=== PATIENT | female | born 1975 | race Caucasian/White ===

== ENCOUNTER 2020-01-16 12:18 | Outpatient (REF) | payer BC, SELFPAY ==
[2020-01-16 14:16] LABS: Blood Urea Nitrogen 10 mg/dL (9-16); Estimated Glomerular Filt Rate > 60
== END 2020-01-16 12:19 | disposition home or self-care (01) ==
LOC: HO.LAB 12:18
PROVIDERS: PCP Internal Medicine; Visit Provider Obstetrics & Gynecology
DX: Z01.812 Encounter for preprocedural laboratory examination (principal)
CPT/HCPCS: 82565; 84520

== ENCOUNTER 2020-01-20 07:52 | Outpatient (REF) | payer BC, SELFPAY ==
--- NOTE | 2020-01-20 07:55 | CT_ITS ---
EXAMINATION: CT ABDOMEN AND PELVIS WITHOUT AND WITH CONTRAST CLINICAL INFORMATION: Microscopic hematuria. COMPARISON: None TECHNIQUE: Multidetector volumetric imaging was performed of the abdomen and pelvis before and after the IV administration of 85 mL of Omnipaque 350 intravenous contrast. Sagittal and coronal reformatted images were obtained on the technologist's workstation. This CT examination was performed using dose optimization techniques as appropriate, variously including the following: *Automated exposure control *Adjustment of mA and/or kV according to patient size (this includes techniques or standardized protocols for targeted exams where dose is matched to indication/reason for exam; i.e. extremities or head) *Use of iterative reconstruction technique DLP: 705 mGy-cm FINDINGS: LUNG BASES: Minimal atelectatic changes are seen in the left lung base. LIVER, GALLBLADDER AND BILIARY TREE: The liver is normal in size, shape and attenuation. No focal hepatic lesion or biliary ductal dilatation is present. The gallbladder is unremarkable with no evidence of radiopaque gallstones, gallbladder wall thickening, or obvious pericholecystic inflammatory changes. PANCREAS: Unremarkable. SPLEEN: Unremarkable. ADRENAL GLANDS: Unremarkable. KIDNEYS AND URETERS: Precontrast, there are no radiopaque renal calculi seen. Postcontrast, there is symmetrical cortical nephrograms without any focal defect. There are punctate hypodensities in the lower pole and upper pole kidneys which may represent small cysts. Left kidney measures 10.3 cm in length and right kidney measures 11.14 cm in length. There is good opacity of bilateral kidneys, pelves and ureters without intraluminal filling defect or obstruction. BLADDER: Unremarkable. GASTROINTESTINAL TRACT: There is scattered stool and gas seen throughout the colon without any significant distention. The small bowel loops are normal caliber. No free air or free fluid seen. ABDOMINAL WALL: No significant hernia is appreciated. LYMPH NODES: Normal. VASCULAR: Unremarkable. PELVIC VISCERA: The uterus is anteverted and bulky with at least 2 heterogeneous lesions, likely fibroids seen. A third hypoechoic lesion in the cervix may represent a nabothian cyst or a lower uterine fibroid. There are bilateral ovarian cysts. The left ovarian cyst measures 3.1 cm and right ovarian cyst measures 2.4 cm. OSSEOUS STRUCTURES: No lytic process seen. CT/CT abdomen pelvis wo/w con IMPRESSION: No radiopaque urolith or hydroureteronephrosis. No enhancing renal mass seen. There are punctate hypodensities which may represent small cysts. Bulky enlarged uterus, likely fibroid disease. There is a nonenhancing hypodense area in the cervix may represent a nabothian cyst or a lower uterine fibroid. Recent ultrasound 12/12/2019 revealed at least 3 uterine fibroids.
[2020-01-20] MEDS: iohexoL 350 MG/ML 100 ML INFUS..BTL IV (09:29)
== END 2020-01-20 07:53 | disposition home or self-care (01) ==
LOC: HO.CT 07:52
PROVIDERS: PCP Internal Medicine; Visit Provider Obstetrics & Gynecology
DX: R31.29 Other microscopic hematuria (principal)
CPT/HCPCS: 74178

== ENCOUNTER 2020-04-01 09:02 | Outpatient (REF) | payer BC, SELFPAY ==
[2020-04-01 11:04] LABS: MANUAL DIFF FLAG NO
[2020-04-01 11:15] LABS: Basophils Percent Auto 0.3 % (0-2); Eosinophils Absolute Auto 0.1 X10*3/uL (0.0-0.4); Eosinophils Percent Auto 1.7 % (0-4); Hematocrit 38.7 % (37-47); Imm Gran Abs Auto 0.02 X10*3/uL (0.00-0.03); Imm Gran Pct Auto 0.3 % (0.0-0.4); Lymphocytes Absolute Auto 1.5 X10*3/uL (1.2-4.9); Lymphocytes Percent Auto 26.4 % (20-40); Mean Corpuscular HGB Conc 33.6 g/dl (31.0-35.0); Mean Corpuscular Hemoglobin 29.1 pg (27.0-33.0); Mean Corpuscular Volume 86.8 fL (80-98); Mean Platelet Volume 10.1 fL (9.4-12.3); Monocytes Absolute Auto 0.6 X10*3/uL (0.1-1.2); Monocytes Percent Auto 9.8 % (2-11); Neutrophils Absolute Auto 3.6 X10*3/uL (2.0-8.3); Neutrophils Percent Auto 61.5 % (45-73); Platelet Count 270 X10*3/uL (160-400); Red Blood Count 4.46 X10*6/uL (4.20-5.50); Red Cell Distribution Width 11.9 % (11.0-16.0); White Blood Count 5.8 X10*3/uL (4.8-10.8)
[2020-04-01 12:16] LABS: Thyroid Stimulating Hormone 2.13 uIU/mL (0.32-4.0)
[2020-04-02 09:13] LABS: BV Int Neg Control Negative (Negative); BV Int Pos Control Positive (Positive)
[2020-04-02 21:32] LABS: C. trachomatis RNA TMA NOT DETECTED (NOT DETECTED); N. gonorrhoeae RNA TMA NOT DETECTED (NOT DETECTED)
== END 2020-04-01 09:03 | disposition home or self-care (01) ==
LOC: HO.LAB 09:02
PROVIDERS: PCP Internal Medicine; Visit Provider Advanced Practice Midwife
DX: N93.9 Abnormal uterine and vaginal bleeding, unspecified (principal); R10.2 Pelvic and perineal pain; N92.1 Excessive and frequent menstruation with irregular cycle; Z86.018 Personal history of other benign neoplasm
CPT/HCPCS: 36415; 81003; 81025; 84443; 85025; 87480; 87491; 87510; 87591; 87660

== ENCOUNTER 2020-04-13 08:22 | Outpatient (REF) | payer BC, SELFPAY ==
--- NOTE | 2020-04-13 | MM_ITS ---
EXAMINATION: MM SCREENING DIGITAL BREAST TOMOSYNTHESIS, BILATERAL CLINICAL INFORMATION: Screening. Asymptomatic. Family history breast cancer, mother. The lifetime risk of breast cancer based on the Tyrer-Cuzick Model is 14%. COMPARISON: Mammography: 08/10/2018, 07/10/2017, 04/25/2016 TECHNIQUE: Digital breast tomosynthesis is performed in both the craniocaudal and mediolateral oblique views along with computer-aided detection (CAD). Synthesized 2D images are generated from the tomosynthesis. FINDINGS: The breasts are heterogeneously dense, which may obscure small masses (ACR BI-RADS breast composition Category c). Breast tissue composition borders on average fibroglandular. There is biopsy clip marker again seen posterior lower inner quadrant left breast. There is no interval mass or architectural abnormality or developing density. Left breast shows no abnormal calcifications. Right breast has a few loosely grouped punctate calcifications posterior upper outer breast, more conspicuous, possibly new or increased. Patient will be recalled for additional imaging. MM/MM tomosynthesis screening BI IMPRESSION: 1. Right: Loosely grouped calcifications posterior upper outer quadrant. 2. Left: No mammographic evidence of malignancy. ASSESSMENT: BI-RADS 0: Incomplete - Need Additional Imaging Evaluation RECOMMENDATION: 1. Additional views of the right breast (magnification CC, magnification ML). 2. Radiology department staff will contact the patient for additional imaging. This patient's information was entered into a reminder system with a target due date for their next mammogram.
== END 2020-04-13 08:23 | disposition home or self-care (01) ==
LOC: HO.MAMMO 08:22
PROVIDERS: PCP Internal Medicine; Visit Provider Internal Medicine
DX: Z12.31 Encounter for screening mammogram for malignant neoplasm of breast (principal)
CPT/HCPCS: 77063; 77067

== ENCOUNTER → 2020-04-14 14:33 | Outpatient (BNVA) | payer BC, SELFPAY | PROVIDERS: PCP Internal Medicine; Visit Provider Obstetrics & Gynecology ==

== ENCOUNTER 2020-04-27 08:24 | Outpatient (REF) | payer BC, SELFPAY | END 2020-04-27 08:25 | disposition home or self-care (01) | LOC: HO.LAB 08:24 | PROVIDERS: PCP Internal Medicine; Visit Provider Obstetrics & Gynecology | DX: N92.1 Excessive and frequent menstruation with irregular cycle (principal) | CPT/HCPCS: 58100; 81025; 88305 ==

== ENCOUNTER 2020-05-06 10:48 | Outpatient (REF) | payer BC, SELFPAY ==
--- NOTE | ~2020-05-06 | MM_ITS ---
EXAMINATION: MM DIAGNOSTIC DIGITAL MAMMOGRAPHY, RIGHT CLINICAL INFORMATION: Recall from screening for punctate calcifications upper outer right breast. COMPARISON: Mammography: 04/13/2020, 08/10/2018, 07/10/2017 TECHNIQUE: Digital mammography is performed in the following views: Magnification right CC, magnification right ML. FINDINGS: The breasts are heterogeneously dense, which may obscure small masses (ACR BI-RADS breast composition Category c). Additional magnification views show a few faint punctate loosely grouped calcifications in area of interest on ML view just superior to posterior nipple line 6 cm from nipple. There is no three-dimensional correlate on CC projection. Results are discussed with the patient at time of visit. Management plan is for short interval follow-up right mammography in 6 months to include magnification views. MM/MM added views RT IMPRESSION: There are a few loosely grouped calcifications on ML view without CC correlate. ASSESSMENT: BI-RADS 3: Probably Benign RECOMMENDATION: Diagnostic right mammography in 6 months. This patient's information was entered into a reminder system with a target due date for their next mammogram.
== END 2020-05-06 10:49 | disposition home or self-care (01) ==
LOC: HO.MAMMO 10:48
PROVIDERS: PCP Internal Medicine; Visit Provider Internal Medicine
DX: R92.1 Mammographic calcification found on diagnostic imaging of breast (principal)
CPT/HCPCS: 77065

== ENCOUNTER → 2020-05-13 12:01 | Outpatient (BNVA) | payer BC, SELFPAY | PROVIDERS: PCP Internal Medicine; Visit Provider Obstetrics & Gynecology ==

== ENCOUNTER 2020-05-27 08:28 | Outpatient (REF) | payer BC, SELFPAY ==
[2020-05-30 06:12] LABS: HPV mRNA E6/E7 rflx Not Detected (Not Detected)
== END 2020-05-27 08:29 | disposition home or self-care (01) ==
LOC: HO.LAB 08:28
PROVIDERS: Visit Provider Obstetrics & Gynecology
DX: Z01.419 Encounter for gynecological examination (general) (routine) without abnormal findings (principal); Z11.51 Encounter for screening for human papillomavirus (HPV); N92.1 Excessive and frequent menstruation with irregular cycle
CPT/HCPCS: 36415; 87624; 88142

== ENCOUNTER → 2020-06-03 10:27 | Outpatient (BNVA) | payer BC, SELFPAY | PROVIDERS: Visit Provider Obstetrics & Gynecology ==

== ENCOUNTER 2020-06-05 10:39 | Day surgery (SDC) | payer BC, SELFPAY ==
[2020-06-01 12:32] VITALS: BMI 26.9
--- NOTE | 2020-06-04 09:36 | HO.ANESPROP2 ---
Documented by User: Naheed Boone 06/04/20 09:37 HPI - Anesthesia Eval Consult details Narrative: 89yo F for D&C Diagnostic Hysteroscopy, Poss Novasure Ablation PMFSH Active Problems Active Problems: All Active Problems (Updated 06/01/20 @ 12:29 by Nannette Tracey) Pre-procedure lab exam (Acute) Abnormal uterine bleeding (AUB) (Acute) History of uterine fibroid (Acute) Pelvic pain in female (Acute) Bacterial vaginosis (Acute) Microscopic hematuria (Acute) Menometrorrhagia (Acute) Well woman exam (Acute) Past Medical History Medical History ASCUS with positive high risk HPV History of COVID-19 Hx of iron deficiency anemia Family History Family History Mother History of breast cancer Surgical History Surgical History H/O hand surgery H/O surgical removal of keloid History of endometrial ablation Hx of tubal ligation Social History Social History Alcohol intake: current Alcohol intake frequency: holidays/special occasions only Smoking Status: Never smoker Use of substances other than those prescribed or required for medical reasons: No Have you been hit, kicked, punched, or otherwise hurt by someone within the past year? If so, by whom?: No Advance Directives: No Advance Directives Information Provided: No Advance Directives on File: No Recently lost weight without trying: No Sexual orientation: Straight/Heterosexual Meds Allergies Allergy/AdvReac Type Severity Reaction Status Date / Time No Known Allergies Allergy Verified 06/05/20 11:25 [No Known Allergies*] Home Medications Medication Instructions Recorded Confirmed Last Taken Type albuterol sulfate 2 puff PO Q4H PRN 06/01/20 06/01/20 Unknown History Exam Exam Date and Time: June 04, 2020 0936 Height,Weight and Vital Signs: Height 5 ft 4 in Weight 71.214 kg Pertinent Lab Results Pertinent Lab Results: Laboratory Tests 04/01/20 10:30 WBC 5.8 Hgb 13.0 Hct 38.7 Plt Count 270 Assessment and Plan Assessment Anesthesia Assessment: Chart Reviewed Documented by User: Rodriguez Luu 06/05/20 12:08 PMFSH Past Medical History Medical History ASCUS with positive high risk HPV History of COVID-19 Hx of iron deficiency anemia Family History Family History Mother History of breast cancer Surgical History Surgical History H/O hand surgery H/O surgical removal of keloid History of endometrial ablation Hx of tubal ligation Social History Social History Alcohol intake: current Alcohol intake frequency: holidays/special occasions only Smoking Status: Never smoker Use of substances other than those prescribed or required for medical reasons: No Have you been hit, kicked, punched, or otherwise hurt by someone within the past year? If so, by whom?: No Advance Directives: No Advance Directives Information Provided: No Advance Directives on File: No Recently lost weight without trying: No Sexual orientation: Straight/Heterosexual Meds Allergies Allergy/AdvReac Type Severity Reaction Status Date / Time No Known Allergies Allergy Verified 06/05/20 11:25 [No Known Allergies*] Home Medications Medication Instructions Recorded Confirmed Last Taken Type albuterol sulfate 2 puff PO Q4H PRN 06/01/20 06/01/20 Unknown History Exam Airway Mallampati Class: II TM Dist: >3cm Neck ROM: Full
[2020-06-05 11:04] VITALS: BP 117/63; PULSE 69; RESP 18; TEMP 36.9; O2SAT 98
[2020-06-05 11:09] LABS: UPreg QC Valid YES; Urine Pregnancy NEGATIVE (NEGATIVE)
[2020-06-05] MEDS: Lactated Ringers 1,000 ML 100 ML IVCONT (11:22)
--- NOTE | 2020-06-05 12:14 | MHC.SHP ---
Pre-Procedural Eval Section A The patient is an INPATIENT: No Changes since office visit: No Cold of Flu in the past 2 weeks, No New Medical Problems, No Changes in Medication and No Patient answered all questions The History & Physical has been completed within 30 days and I have reviewed it.: Yes Section B Chief Complaint: Frequent Menstruation, Irregular Cycle Allergies: Allergies Allergy/AdvReac Type Severity Reaction Status Date / Time No Known Allergies Allergy Verified 06/05/20 11:25 [No Known Allergies*] Plan Diagnosis/Plan: Unchanged I have reviewed the history and physical and performed a pertinent physical examination on my patient. No changes have occurred unless specified.
--- NOTE | 2020-06-05 13:45 | PM.OP ---
Brief Operative Note Date of Service: 02/07/20 Pre-op diagnosis: Menometrorrhagia history of previous endometrial ablation Post-op diagnosis: other (Intrauterine adhesions) Procedure: Diagnostic hysteroscopy, failed attempt for NovaSure Endometrial Ablation Surgeon: Huy Pollard MD Anesthesia: MAC Estimated blood loss (mL): 0 Pathology: none sent Condition: stable Disposition: PACU
--- NOTE | 2020-06-05 13:50 | P.OP_ITS ---
Operative Note Operative Note Date of Service: 02/07/20 Narrative: Preop diagnosis: Menmetrorrhagia Post Op Diagnosis: Same, intrauterine adhesions Op: Diagnostic hysteroscopy, failed attempt of Novasure Endometrial Ablation Anesthesia: MAC Lead Sharepoint Developer: None QBL: Minimal Pathology: None Complications: None Procedure: The patient was put in the dorsal lithotomy position. She was prepped and draped in the usual sterile manner. Bimanual exam prior to prepping revealed a mobile, anteverted uterus. A speculum was placed in the vagina and the anterior lip of the cervix was grasped with a single toothed tenaculum and brought forward. Taking care not to enter deep into the uterus, a sound was passed inside to measure the length of the uterus and cervix. This length was found to be 8 cm. Next, Hegar dilator was inserted into the cervical os to measure the cervical length which was 3 cm. This yielded an endometrial cavity length of 6.5 cm. A series of Hegar dilators were then inserted sequentially into the cervical os up to a size of 5 mm. The diagnostic hysteroscope was introduced inside inside the patient uterine cavity and revealed lateral adhesions on both side. The Novasure device was then opened and tested; the fan deployed easily. The instrument was set to the correct cavity length and introduced into the uterine cavity. The fan was slowly deployed with gentle movements to ensure a snug fit within the cavity. The cavity width read 3.0 cm. The measurements were imported and a cavity check was done. The trumpet was then slid down to the cervix and the device the perforation test did not pass, this was followed by multiple attempts to no avail . The fan was retracted and device removed. The fan was examined and revealed charred tissue. The tenaculum was removed and the cervix examined for hemostasis which was achieved using pressure. Finally the speculum was removed. The patient tolerated the procedure well and was brought to the recovery room in a stable condition. At the end of the procedure all sponges and instruments were counted and correct. The blood loss was minimal and there were no complications.
[2020-06-05 13:55] VITALS: BP 150/78; PULSE 61; RESP 18; TEMP 36.2; O2SAT 100
[2020-06-05 14:00] VITALS: BP 137/81; PULSE 59; RESP 16; O2SAT 100
[2020-06-05 14:05] VITALS: BP 139/85; PULSE 92; RESP 17; O2SAT 99
[2020-06-05] MEDS: oxyCODONE HCl Immed Release 5 MG TABLET PO (14:05)
[2020-06-05 14:10] VITALS: BP 143/85; PULSE 60; RESP 16; O2SAT 98
[2020-06-05 14:25] VITALS: BP 148/87; PULSE 62; RESP 17; TEMP 36.2; O2SAT 98
== END 2020-06-05 14:54 | disposition home or self-care (01) ==
LOC: HO.SSS 10:39
PROVIDERS: PCP Internal Medicine; Visit Provider Obstetrics & Gynecology
PROC: 0UDB8ZX Extraction of Endometrium, Via Natural or Artificial Opening Endoscopic, Diagnostic (ICD-10-PCS; CPT 58558; principal; 2020-06-05 14:00)
DX: N92.1 Excessive and frequent menstruation with irregular cycle (principal); N73.6 Female pelvic peritoneal adhesions (postinfective); N85.4 Malposition of uterus; Z98.51 Tubal ligation status; Z87.42 Personal history of other diseases of the female genital tract; Z86.16 Personal history of COVID-19
CPT/HCPCS: 58563; 81025; J1100; J2250; J2405; J3010

== ENCOUNTER 2020-06-10 11:02 | Outpatient (REF) | payer BC, SELFPAY ==
[2020-06-10 17:54] LABS: CT PCR NOT DETECTED (Not Detect.); NG PCR NOT DETECTED (Not Detect.)
[2020-06-11 09:53] LABS: BV Int Neg Control Negative (Negative); BV Int Pos Control Positive (Positive)
== END 2020-06-10 11:03 | disposition home or self-care (01) ==
LOC: HO.LAB 11:02
PROVIDERS: PCP Internal Medicine; Visit Provider Obstetrics & Gynecology
DX: Z48.89 Encounter for other specified surgical aftercare (principal); N92.1 Excessive and frequent menstruation with irregular cycle; N71.9 Inflammatory disease of uterus, unspecified
CPT/HCPCS: 87480; 87491; 87510; 87591; 87660

== ENCOUNTER → 2020-06-12 09:34 | Outpatient (BNVA) | payer BC, SELFPAY | PROVIDERS: PCP Internal Medicine; Visit Provider Obstetrics & Gynecology ==

== ENCOUNTER 2020-06-12 10:25 | Outpatient (REF) | payer BC, SELFPAY ==
--- NOTE | ~2020-06-12 | US_ITS ---
EXAMINATION: PELVIC ULTRASOUND CLINICAL INFORMATION: Inflammatory disease of the uterus COMPARISON: Previous pelvic ultrasound November [address] of the abdomen and pelvis December 2019 TECHNIQUE: Transabdominal and transvaginal pelvic ultrasound was performed. Transvaginal exam was performed for better visualization of the uterus and ovaries. FINDINGS: The uterus is anteverted and slightly enlarged measuring 12.8 x 5.7 x 9.8 cm in dimension. There are multiple uterine fibroids. There is a left anterior fundal/cornual fibroid that measures 4.4 x 3.7 x 4.4 cm and appears increased from 3 x 3 x 2.7 cm on previous exam. There is a anterior upper uterine body or or fundal fibroid that measures 4.3 x 2.7 x 3.2 cm that is may be slightly increased from 3.5 x 2.9 x 3.3 cm on previous exam. There is a right posterior uterine body fibroid measuring 1.4 x 0.8 x 1.2 cm that appears unchanged. There is a left anterior uterine body fibroid that measures 1.8 x 1.4 x 1.8 cm that appears unchanged. Endometrial thickness is normal measuring 0.8 cm. There are nabothian cysts in the cervix. The right ovary measures 3.9 x 2.1 x 2.2 cm and contains a 2.1 x 1.8 x 1.8 cm simple cyst. Left ovary is seen transabdominally only. The left ovary is enlarged measuring 5.6 x 1.9 x 3.6 cm and contains a 3.7 x 2 x 3.6 cm simple cyst. US/US pelvic complete IMPRESSION: Enlarged fibroid uterus. There may be interval increase in the largest uterine fibroids. Normal thickness endometrium measuring 0.8 cm. Bilateral ovarian cysts, largest measuring 3.7 x 2 x 3.6 cm on the left.
== END 2020-06-12 10:26 | disposition home or self-care (01) ==
LOC: HO.US 10:25
PROVIDERS: PCP Internal Medicine; Visit Provider Obstetrics & Gynecology
DX: N71.9 Inflammatory disease of uterus, unspecified (principal)
CPT/HCPCS: 76830; 76856

== ENCOUNTER → 2020-06-15 11:47 | Outpatient (BNVA) | payer BC, SELFPAY | PROVIDERS: PCP Internal Medicine; Visit Provider Obstetrics & Gynecology ==

== ENCOUNTER → 2020-07-23 11:11 | Outpatient (BNVA) | payer BC, SELFPAY | PROVIDERS: PCP Internal Medicine; Visit Provider Obstetrics & Gynecology ==

== ENCOUNTER 2020-07-31 11:35 | Emergency (ER) | payer BC, SELFPAY ==
[2020-07-31 11:41] VITALS: BP 149/88; PULSE 80; RESP 18; TEMP 36.4; O2SAT 98; BMI 26.7
--- NOTE | 2020-07-31 11:58 | ED.EYEPROB ---
HPI - Eye Problem General Chief complaint: Eye Problems Stated complaint: EYE ISSUE Time Seen by Provider: 07/31/20 11:58 History of Present Illness HPI Narrative: Patient complains of right upper lid redness and swelling with no vision change no discharge from the eye no eye pain This is been going on for 2-3 days and she saw urgent care who started erythromycin ointment but the redness is getting worse Related Data Home Medications Medication Instructions Recorded Confirmed albuterol sulfate 2 puff PO Q4H PRN 06/01/20 07/23/20 Previous Rx's Medication Instructions Recorded tranexamic acid 650 mg tablet 1,300 mg PO TID 5 Days #30 tab 06/15/20 erythromycin 5 mg/gram (0.5 %) eye 1 appl OPHTHALMIC (EYE) QID 7 Days 07/29/20 ointment #3.5 g cephalexin 500 mg PO QID 7 Days #28 tab 07/31/20 Allergies Allergy/AdvReac Type Severity Reaction Status Date / Time No Known Allergies Allergy Verified 07/29/20 14:24 [No Known Allergies*] Review of Systems Review of Systems: Positive for right upper eyelid swelling, some redness in the eye, Negatives are no fever no chills no dizziness no headache no vision loss no eye pain no discharge from the eye no runny nose no sore throat no cough no rash Yes all other systems are reviewed and are negative PMFSH Past Medical History Source: nursing notes reviewed Medical History ASCUS with positive high risk HPV History of COVID-19 Hx of iron deficiency anemia Surgical History H/O hand surgery H/O surgical removal of keloid History of endometrial ablation Hx of tubal ligation Family History Family History Mother History of breast cancer Social History Social History Alcohol intake: current Alcohol intake frequency: holidays/special occasions only Smoking Status: Never smoker Advance Directives: No Advance Directives Information Provided: Yes Patient : No Sexual orientation: Straight/Heterosexual Physical Exam Vital Signs: Vital Signs: Last Vital Signs Temp 97.6 F 07/31/20 11:41 Pulse 80 05/07/21 11:41 Resp 18 07/31/20 11:41 BP 149/88 H 07/31/20 11:41 Pulse Ox 98 07/31/20 11:41 Body Mass Index 26.7 General appearance is no acute distress The eye exam bilateral pupils equal round reactive to light, extraocular motions intact, no photophobia, vision is 5 bilateral The right has some conjunctival redness, the right upper lid is red and tender to the touch, when the lid is flicked back there is no foreign body under the upper lid, with staining there is no corneal abrasion or ulceration, there is mild swelling infraorbital with no erythema, no vesicular lesions no rash surrounding eye or the face The neck is supple Respiratory no distress Extremities full range of motion x4 Skin no rashes Course Course Course Narrative: Staining of the eye was negative, there is no pain in the eye itself, there was conjunctival redness and she is already on erythromycin ointment As there is now redness of the skin of the eyelid and some swelling below the eye on concerned about a developing cellulitis so she is started on antibiotics Discharge Plan Discharge Clinical Impression: Cellulitis, Blepharitis Patient Disposition: Home, Self-Care Additional Instructions: We added an antibiotic for possible skin infection around the eyelid and in the skin around the eye Follow with eye doctor or primary doctor on Monday or Monday if not better Return to the ER any time for spreading redness, fever, increased pain, worse swelling, any vision loss, discharge from the eye, any worse condition or any concerns Prescriptions: New cephalexin 500 mg tablet 500 mg PO QID 7 Days Qty: 28 RF: 0 No Action albuterol sulfate 90 mcg/actuation HFA aerosol inhaler 2 puff PO Q4H PRN (Reason: Wheezing) RF: 0 erythromycin 5 mg/gram (0.5 %) ointment 1 appl ophthalmic (eye) QID 7 Days Qty: 3.5 RF: 0 tranexamic acid [Lysteda] 650 mg tablet 1,300 mg PO TID 5 Days Qty: 30 RF: 2 Referrals: Negro Meza [Physician] - 2 days (Right-sided blepharitis) Stand Alone Forms: Work/School Release Interventions: ED Discharge Assessment Last Done: 07/31/20 12:46 Discharge Date/Time: 07/31/20 12:47
== END 2020-07-31 12:47 | disposition home or self-care (01) ==
PROVIDERS: Emergency Provider Emergency Medicine; PCP Internal Medicine
DX: H01.001 Unspecified blepharitis right upper eyelid (principal); H00.031 Abscess of right upper eyelid; H57.11 Ocular pain, right eye; Z79.899 Other long term (current) drug therapy
CPT/HCPCS: 99283

== ENCOUNTER 2020-09-29 12:56 | Outpatient (REF) | payer BC, SELFPAY ==
--- NOTE | ~2020-09-29 | US_ITS ---
EXAMINATION: US PELVIS COMPLETE CLINICAL INFORMATION: Abnormal uterine bleeding. COMPARISON: Pelvic ultrasound May 2020. CT December 2019. TECHNIQUE: Transabdominal and transvaginal pelvic ultrasound were performed FINDINGS: Uterus: 14.2 x 6.3 x 8.5 cm. Endometrial thickness cannot be assessed as it was obscured related to the fibroids. Total uterine volume 397 mL (previously 373 mL). 4 fibroids noted: 2 appear slightly increased in size compared to prior ultrasound. Fibroid #1: Measures 4.4 x 3.3 x 4.2 cm, unchanged. Anterior body fundus junction. Fibroid #2: Measures 3 x 2.3 x 2.2 cm previously 1.4 x 0.79 x 1.2 cm. Anterior body. Fibroid #3: Measures 3.2 x 2.4 x 3.7 cm, unchanged. Lower anterior. Fibroid #4 Measures 2.6 x 1.7 x 2.8 cm slightly increased compared to prior measuring 1.8 x 1.4 x 1.8 cm. Posterior body. Right ovary 3.6 x 1.8 x 2.3 cm. 1.8 cm cyst noted. Previously 2.1 cm. Left ovary: 3.2 x 1.9 x 2.7 cm with a volume of 8.6 mL. 1.6 cm cyst noted. Previously 3.7 cm. Cul-de-sac fluid: None Nabothian cysts again noted. US/US pelvic and transvaginal IMPRESSION: Fibroid uterus. 2 fibroids appears slightly increased compared to recent ultrasound May 2020. It is possible this change in size is artifactual related to sifting operator variability.
== END 2020-09-29 12:57 | disposition home or self-care (01) ==
LOC: HO.US 12:56
PROVIDERS: Visit Provider Obstetrics & Gynecology
DX: N93.9 Abnormal uterine and vaginal bleeding, unspecified (principal); N92.1 Excessive and frequent menstruation with irregular cycle; N88.8 Other specified noninflammatory disorders of cervix uteri
CPT/HCPCS: 76830; 76856

== ENCOUNTER → 2020-10-07 09:00 | Outpatient (BNVA) | payer BC, SELFPAY | PROVIDERS: Visit Provider Obstetrics & Gynecology ==

== ENCOUNTER 2020-10-20 12:03 | Inpatient (IN) | payer BC, SELFPAY ==
[2020-10-13 11:46] VITALS: BMI 27.1
--- NOTE | 2020-10-13 13:15 | HO.ANESPROP2 ---
Documented by User: Naheed Mely 10/13/20 13:17 HPI - Anesthesia Eval Consult details Narrative: 45yo F for Hysterectomy Abdominal, Bilitaral Salpingectomy, Bilateral Oophorectomy s/p D&C hyst with [facility] 4 05/2020 [facility] Active Problems Active Problems: All Active Problems (Updated 10/02/20 @ 09:12 by Bettina mSith MD) Pre-procedure lab exam (Acute) Abnormal uterine bleeding (AUB) (Acute) History of uterine fibroid (Acute) Pelvic pain in female (Acute) Bacterial vaginosis (Acute) Microscopic hematuria (Acute) Menometrorrhagia (Acute) Well woman exam (Acute) Endometritis (Acute) Blepharitis of eyelid of right eye (Acute) Iron deficiency (Acute) Past Medical History Medical History ASCUS with positive high risk HPV History of COVID-19 Hx of iron deficiency anemia Family History Family History Mother History of breast cancer Surgical History Surgical History (Updated 10/13/20 @ 11:34 by Nannette Tracey) H/O hand surgery H/O surgical removal of keloid History of endometrial ablation History of hysteroscopy Hx of tubal ligation Social History Social History Are you a primary hearing healthcare practitioner to a significant other at home: No Do you presently have visiting nurse or other home services: No Alcohol intake: current Alcohol intake frequency: a few times a month Patient Tobacco Use Status: Never used Tobacco Sexual orientation: Straight/Heterosexual Meds Allergies Allergy/AdvReac Type Severity Reaction Status Date / Time No Known Allergies Allergy Verified 10/13/20 11:35 [No Known Allergies*] Home Medications Medication Instructions Recorded Confirmed Last Taken Type No Known Home Meds 10/13/20 10/13/20 Unknown History Exam Exam Date and Time: October 13, 2020 1315 Height,Weight and Vital Signs: Height 5 ft 4 in Weight 71.668 kg Pertinent Lab Results Pertinent Lab Results: Laboratory Tests 10/02/20 09:10 WBC 7.4 Hgb 12.4 Hct 38.0 Plt Count 229 Assessment and Plan Assessment Anesthesia Assessment: Chart Reviewed Documented by User: [email or web address] Anti 10/20/20 09:27 PMFSH Past Medical History Medical History ASCUS with positive high risk HPV History of COVID-19 Hx of iron deficiency anemia Family History Family History Mother History of breast cancer Surgical History Surgical History (Updated 10/13/20 @ 11:34 by Nannette Tracey) H/O hand surgery H/O surgical removal of keloid History of endometrial ablation History of hysteroscopy Hx of tubal ligation Social History Social History Are you a primary hearing healthcare practitioner to a significant other at home: No Do you presently have visiting nurse or other home services: No Alcohol intake: current Alcohol intake frequency: a few times a month Patient Tobacco Use Status: Never used Tobacco Sexual orientation: Straight/Heterosexual Meds Allergies Allergy/AdvReac Type Severity Reaction Status Date / Time No Known Allergies Allergy Verified 10/13/20 11:35 [No Known Allergies*] Home Medications Medication Instructions Recorded Confirmed Last Taken Type No Known Home Meds 10/13/20 10/13/20 Unknown History Exam Airway Mallampati Class: II TM Dist: >3cm Neck ROM: Full Loose/Missing/Broken Teeth: No Heart: RRR Lungs: CTA Assessment and Plan Assessment Anesthesia Assessment: Anesthesia Plan Discussed and Chart Reviewed Final Anesthetic Review NPO: Yes ASA Class: II Final Preanesthetic Review: Meds/Allgs Chart Reviewed, Consent Obtained/Reviewed and Anes Risks/Benef Reviewed Patient Risk: Low Procedure Risk: Intermediate Anesthetic Plan Anesthetic Plan: GA Disposition: Standard PACU
[2020-10-20] VITALS (21 sets, daily range): BP systolic 127–167; BP diastolic 57–92; PULSE 63–96; RESP 16–22; TEMP 36.1–37.1; O2SAT 95–100
[2020-10-20 09:18] LABS: Hematocrit 38.1 % (37-47); Hemoglobin 12.6 g/dl (12.0-16.0); Mean Corpuscular HGB Conc 33.1 g/dl (31.0-35.0); Mean Corpuscular Hemoglobin 28.7 pg (27.0-33.0); Mean Corpuscular Volume 86.8 fL (80-98); Mean Platelet Volume 9.9 fL (9.4-12.3); Platelet Count 239 X10*3/uL (160-400); Red Blood Count 4.39 X10*6/uL (4.20-5.50); Red Cell Distribution Width 12.1 % (11.0-16.0)
[2020-10-20 09:31] LABS: UPreg QC Valid YES; Urine Pregnancy NEGATIVE (NEGATIVE)
[2020-10-20] MEDS: Lactated Ringers 1,000 ML 100 ML IVCONT (09:32)
[2020-10-20 09:44] LABS: COVID-19 Test Negative (Negative); IDNOW Serial# 9DD0AD1C
--- NOTE | 2020-10-20 09:53 | MHC.SHP ---
Pre-Procedural Eval Section A Date of Service: 10/20/20 The patient is an INPATIENT: No Changes since office visit: No Cold of Flu in the past 2 weeks, No New Medical Problems, No Changes in Medication and No Patient answered all questions The History & Physical has been completed within 30 days and I have reviewed it.: Yes Section B Chief Complaint: Frequent Menstruation Allergies: Allergies Allergy/AdvReac Type Severity Reaction Status Date / Time No Known Allergies Allergy Verified 10/13/20 11:35 [No Known Allergies*] Plan Diagnosis/Plan: Unchanged I have reviewed the history and physical and performed a pertinent physical examination on my patient. No changes have occurred unless specified.
--- NOTE | 2020-10-20 12:09 | PM.OP ---
Brief Operative Note Date of Service: 10/20/20 Pre-op diagnosis: Menometrorrhagia and myomatous uterus Post-op diagnosis: same Procedure: Total abdominal hysterectomy and bilateral salpingo oophorectomy Surgeon: Huy Pollard MD Anesthesia: MIGUELA Was an Diesel Machinist used for this Procedure?: No Diesel Machinist: Filipe Conde Estimated blood loss (mL): 180 IV fluids (mL): 1,200 Urine output (mL): 200 Pathology: other (Uterus, cervix Right & left fallopian tubes, right and left ovaries) Condition: stable Disposition: PACU
--- NOTE | 2020-10-20 12:12 | W.PM.OPN ---
Operative Note Operative Note Date of Service: 10/20/20 Narrative: PREOPERATIVE DIAGNOSES: 1. Severe menometrorrhagia unresponsive to medical therapy. 2. Symptomatic fibroid uterus. POSTOPERATIVE DIAGNOSES: 1. Severe menometrorrhagia unresponsive to medical therapy. 2. Symptomatic fibroid uterus. PROCEDURE: Total abdominal hysterectomy& Bilateral salpingecto oophorectomy ANESTHESIA: General. Director Electronics: Mireya Conde MD ESTIMATED BLOOD LOSS: 180 mL. COMPLICATIONS: None. FINDING: Fibroid uterus. PROCEDURE IN DETAIL: The patient was prepped and draped in the usual sterile fashion for an abdominal procedure. A scalpel was used to make a midline skin incision, which was carried down sharply through the subcutaneous tissue to the fascia. The fascia was nicked in the midline and incision was carried at the upper and lower edge of the incision with curved Beasley scissors. The rectus abdominis muscles were in the midline. The peritoneum was then bluntly entered and this incision was carried down inferiorly and superiorly with care taken to avoid bladder and bowel. The O'Neville-O'Villegas instrument was then placed without difficulty. The uterus was grasped with 2 Heany clamps on both cornual ends of the uterus and the entire pelvis was then visualized without difficulty. The Right round ligament was grasped with a Heany clamp, suture ligated and transacted using #0 Vycril suture ligature, and the anterior peritoneum dissected down to the bladder flap which was then developed free from the uterus without difficulty.The same was performed on the left side. The infundibulopelvic ligaments on both sides were ligated, transacted and sutured using #0 Vycril suture ligature after opening a fenestration in the braod ligament on each side. Careful dissection of the uterus from the pedicle with the uterine arteries and cardinal ligaments was then ligated, transectioned and suture ligated using #0 Vycril suture ligature in an interrupted fashion on the left and right side. This was done without difficulty. The cervix was then developed with careful dissection. Emerson scissors were then used to remove the cervix from the vaginal cuff. This specimen was sent to pathology. Hemostasis was noted at this point of the procedure. A #0 Vicryl suture ligature was then used in a figure of eight fashion at the angles. Hemostasis was again noted. [id number]-cd-rqpzm sutures were then used in an interrupted fashion to close the cuff. Hemostasis was again noted. The entire pelvis was washed. Hemostasis was noted. The fascia was closed using #0 PDS suture in a running fashion. The skin was closed with staple gun. Sponge and needle counts were noted to be correct x2 at the end of the procedure. Instrument count was noted to be correct x2 at the end of the procedure. Hemostasis was noted at each level of closure. The patient tolerated the procedure well and went to recovery room in good condition. Cafazolin 2 g IV given preop prior to incision. The patient tolerated the procedure well and was transferred to the PACU in a stable condition. Woodard was draining clera urine.
[2020-10-20] MEDS: fentaNYL citrate/PF 100 MCG/2 ML VIAL 50 MCG IVPUSH ×4 (12:23→12:45)
[2020-10-20] MEDS: Ketorolac Tromethamine 30 MG/ML VIAL IV ×2 (12:23→18:37)
[2020-10-20] MEDS: oxyCODONE HCl Immed Release 5 MG TABLET 10 MG PO ×2 (12:24→22:04)
[2020-10-20] MEDS: fentaNYL citrate/PF 100 MCG/2 ML VIAL 25 MCG IVPUSH ×4 (13:45→15:00)
[2020-10-20] MEDS: Lactated Ringers 1,000 ML 125 ML IVCONT ×2 (15:56→20:18)
[2020-10-20] MEDS: oxyCODONE HCl Immed Release 5 MG TABLET PO ×2 (16:00→16:25)
[2020-10-20 16:37] LABS: Baso%MD 0.1 %; Hematocrit 34.6 % (37-47); Hemoglobin 11.7 g/dl (12.0-16.0); IG%MD 0.4 %; Lymph%MD 2.9 %; Mean Corpuscular HGB Conc 33.8 g/dl (31.0-35.0); Mean Corpuscular Hemoglobin 28.9 pg (27.0-33.0); Mean Corpuscular Volume 85.4 fL (80-98); Mono%MD 3.3 %; Neut%MD 93.3 %; Platelet Count 234 X10*3/uL (160-400); Red Blood Count 4.05 X10*6/uL (4.20-5.50); Red Cell Distribution Width 12.1 % (11.0-16.0); White Blood Count 18.4 X10*3/uL (4.8-10.8)
[2020-10-20 17:11] LABS: Band Neutrophils Percent 5 % (3-5); Lymphocytes Absolute Manual 0.2 X10*3/uL (0.6-4.8); Lymphocytes Percent Manual 1 % (20-40); Metamyelocytes Absolute 0.2 X10*3/uL; Metamyelocytes Percent 1 %; Monocytes Absolute Manual 0.7 X10*3/uL (0.0-1.2); Monocytes Percent Manual 4 % (2-11); Neutrophils Absolute Manual 17.3 X10*3/uL (2.2-7.9); Neutrophils Percent Manual 89 % (45-73)
[2020-10-20 17:12] LABS: Platelet Estimate NORMAL (NORMAL); Platelet Morphology Comment NORMAL; RBC Morphology NORMAL
[2020-10-20] MEDS: oxyCODONE HCl ER 10 MG TAB.ER.12H PO (20:18)
[2020-10-21] VITALS: BP 123/65; PULSE 83; RESP 16; TEMP 36; O2SAT 97
[2020-10-21] MEDS: Lactated Ringers 1,000 ML 100 ML IVCONT (06:14)
[2020-10-21 06:24] LABS: MANUAL DIFF FLAG NO
[2020-10-21 06:33] LABS: Basophils Percent Auto 0.1 % (0-2); Hematocrit 32.2 % (37-47); Hemoglobin 10.6 g/dl (12.0-16.0); Imm Gran Abs Auto 0.04 X10*3/uL (0.00-0.03); Imm Gran Pct Auto 0.3 % (0.0-0.4); Lymphocytes Absolute Auto 1.5 X10*3/uL (1.2-4.9); Lymphocytes Percent Auto 10.7 % (20-40); Mean Corpuscular HGB Conc 32.9 g/dl (31.0-35.0); Mean Corpuscular Hemoglobin 28.3 pg (27.0-33.0); Mean Corpuscular Volume 85.9 fL (80-98); Mean Platelet Volume 10.5 fL (9.4-12.3); Monocytes Absolute Auto 1.4 X10*3/uL (0.1-1.2); Monocytes Percent Auto 10.1 % (2-11); Neutrophils Absolute Auto 10.9 X10*3/uL (2.0-8.3); Neutrophils Percent Auto 78.8 % (45-73); Platelet Count 229 X10*3/uL (160-400); Red Blood Count 3.75 X10*6/uL (4.20-5.50); Red Cell Distribution Width 12.1 % (11.0-16.0); White Blood Count 13.8 X10*3/uL (4.8-10.8)
[2020-10-21 07:14] VITALS: BP 145/74; PULSE 75; RESP 17; TEMP 36; O2SAT 98
[2020-10-21] MEDS: oxyCODONE HCl ER 10 MG TAB.ER.12H PO ×2 (08:10→20:48)
--- NOTE | 2020-10-21 08:11 | PM.GYNPNOP ---
INSURANCE SALES REPRESENTATIVE - Subjective Subjective Date of Service: 10/21/20 Interval history: Doing well. No complaints. On bed rest. Woodard in, NPO. 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 Physical Exam Vitals Vital signs: Temp Pulse Resp BP Pulse Ox 96.8 F 75 17 145/74 H 98 10/21/20 07:14 10/21/20 07:14 10/21/20 07:14 10/21/20 07:14 10/21/20 07:14 Body Mass Index 27.1 Incision Incision: Incision C/D/I Lungs Respiratory Effort: No intercostal retractions and No accessory muscle usage Auscultation: Clear to auscultation Cardiovascular Auscultation: RRR Abdomen Auscultation/Inspection/Palpation: Soft, Non-distended and Bowel sounds diminished or absent INSURANCE SALES REPRESENTATIVE - Prog Note: Results Labs CBC & Chem 7: 10/21/20 05:06 Labs: Laboratory Results - last 24 hr 10/20/20 10/20/20 10/20/20 09:00 09:00 09:08 WBC 7.0 RBC 4.39 Hgb 12.6 Hct 38.1 MCV 86.8 MCH 28.7 MCHC 33.1 RDW 12.1 Plt Count 239 MPV 9.9 Immature Gran % (Auto) Neut % (Auto) Lymph % (Auto) Clayton % (Auto) Eos % (Auto) Baso % (Auto) Lymph # (Auto) Clayton # (Auto) Eos # (Auto) Baso # (Auto) Abs Immat Gran (auto) Absolute Neuts (auto) Absolute Nucleated RBC 0.000 Nucleated RBC % (auto) 0.0 Neutrophils % (Manual) Band Neutrophils % Lymphocytes % (Manual) Monocytes % (Manual) Metamyelocytes % Abs Neuts (Manual) Lymphocytes # (Manual) Monocytes # (Manual) Metamyelocytes # Platelet Estimate Plt Morphology Comment RBC Morphology Urine Test NEGATIVE COVID-19 ([facility]) Negative COVID-19 Clin Com See Note Blood Type Antibody Screen 10/20/20 10/20/20 10/21/20 09:08 16:19 05:06 WBC 18.4 H 13.8 H RBC 4.05 L 3.75 L Hgb 11.7 L 10.6 L Hct 34.6 L 32.2 L MCV 85.4 85.9 MCH 28.9 28.3 MCHC 33.8 32.9 RDW 12.1 12.1 Plt Count 234 229 MPV 10.0 10.5 Immature Gran % (Auto) 0.3 Neut % (Auto) 78.8 H Lymph % (Auto) 10.7 L Clayton % (Auto) 10.1 Eos % (Auto) 0.0 Baso % (Auto) 0.1 Lymph # (Auto) 1.5 Clayton # (Auto) 1.4 H Eos # (Auto) 0.0 Baso # (Auto) 0.0 Abs Immat Gran (auto) 0.04 H Absolute Neuts (auto) 10.9 H Absolute Nucleated RBC 0.000 0.000 Nucleated RBC % (auto) 0.0 0.0 Neutrophils % (Manual) 89 H Band Neutrophils % 5 Lymphocytes % (Manual) 1 L Monocytes % (Manual) 4 Metamyelocytes % 1 Abs Neuts (Manual) 17.3 H Lymphocytes # (Manual) 0.2 L Monocytes # (Manual) 0.7 Metamyelocytes # 0.2 Platelet Estimate NORMAL Plt Morphology Comment NORMAL RBC Morphology NORMAL Urine Test COVID-19 ([facility]) COVID-19 Clin Com Blood Type A Positive Antibody Screen NEGATIVE INSURANCE SALES REPRESENTATIVE - A/P Assessment/Plan Postoperative day: 1 Procedure/Diagnosis: Procedures Operation Date: 10/20/20 10:30 Actual Procedure Side Surgeon p Hysterectomy Abdominal, Bilitaral Salpingectomy, Bilateral Oophorectomy Bilateral Huy Pollard MD Ambulate with assistance DC Woodard catheter, if the patient does void and 6 hours scan the bladder, clear liquid diet, if tolerated Hep-Lock IV, DC Toradol and switch to Motrin 600 mg Q 6-8 p.r.n. pain. Oxycodone 5 mg p.o. Q 4 p.r.n. moderate pain and 10 mg p.o. Q 4 hours p.r.n. severe pain. If positive flatus will advanced diet to regular. Status: Doing well Time Spent With Patient Time: Total time spent is greater than 50% in coordination of care (as documented) at patient's floor/unit and/or counseling patient: Time with patient: 15 - 24 minutes
[2020-10-21] MEDS: oxyCODONE HCl Immed Release 5 MG TABLET 10 MG PO ×4 (08:16→23:26)
--- NOTE | 2020-10-21 08:38 | HO.POSTANES ---
Post Anesthesia Evaluation Post Anesthesia Evaluation Vital Signs: Vital Signs Temp Pulse Resp BP Pulse Ox 10/21/20 07:14 96.8 F 75 17 145/74 H 98 10/21/20 00:00 96.8 F 83 16 123/65 97 Anesthesia: General Endotracheal-GETA Mental Status: Awake Pain Control: Satisfactory Nausea/Vomiting: None Hydration: Adequate Anesthesia-Related Issues: No Anes. Related Issues
[2020-10-21] MEDS: Ibuprofen 600 MG TABLET PO (10:19)
--- NOTE | 2020-10-21 13:16 | MHC.CM.PN ---
DISCHARGE PLAN-- PER [facility]ER [facility] HOME WITH NO SERVICES TRANSPORTATION LABORER LIVESTOCK FOLLOW UP PER DISCHARGE INSTRUCTIONS PCP PATIENT TO CALL FOR APPOINTMENT DR POE FOR POST [facility] DISCHARGE FOLLOW UP TRANSPORTATION NURSE SEGMENT BLOCK LAYER NOTE ELECTRONIC MEDICAL RECORD REVIEWED ALONG WITH CASE DISCUSSED WITH STAFF NURSE AND LABORER LIVESTOCK PHYISICIAN BY TEXT, MET WITH PATIENT AND HER , PATIENT IS EMPLOYED , ACTIVE , INDEPENDENT IN ALL ALDS AND MOBILITY WITH OUT THE USE OF ANY DEVICES SHE HAS NO VNA /NO DME SERVICES TRANSPORT FAMILY
[2020-10-21 15:35] VITALS: BP 111/58; PULSE 60; RESP 16; TEMP 36; O2SAT 97
[2020-10-21 23:20] VITALS: BP 134/63; PULSE 75; RESP 16; TEMP 36; O2SAT 99
[2020-10-22 07:46] VITALS: BP 121/75; PULSE 81; RESP 16; TEMP 36.3; O2SAT 97
--- NOTE | 2020-10-22 08:08 | P.PNOB_ITS ---
CORPORATE ACCOUNTING MANAGER - Subjective Subjective Date of Service: 10/22/20 Interval history: Doing well. No complaints. Tolerating regular diet. + Flatus, good pain control, voiding freely Subjective Findings: Ambulating well: Reports, Flatus passed: Reports, Nausea: Denies and Pain controlled: Reports MASTER SHIP Physical Exam Vitals Vital signs: Temp Pulse Resp BP Pulse Ox 97.4 F 81 16 121/75 97 10/22/20 07:46 10/22/20 07:46 10/22/20 07:46 10/22/20 07:46 10/22/20 07:46 Body Mass Index 27.1 Incision Incision: Incision C/D/I Lungs Respiratory Effort: No intercostal retractions and No accessory muscle usage Auscultation: Clear to auscultation Cardiovascular Auscultation: RRR Abdomen Auscultation/Inspection/Palpation: Soft, Non-distended and Bowel sounds diminished or absent CORPORATE ACCOUNTING MANAGER - Prog Note: Results Labs CBC & Chem 7: 10/21/20 05:06 CORPORATE ACCOUNTING MANAGER - A/P (1) Post-operative state: Status: Acute Assessment and Plan: DC home, oxycodone 5 mg po q 4 PRN thi, Motrin 600 mg p q8 PRN pian, Instuctions given to the pt to call if any of the following occurs: vaginal bleeing, temp>100.4, abd pain, incisinal redness, gapping or discharge, abdominal distention, nausea or vomiting FU in the office in 5 days for staple removal Assessment/Plan Procedure/Diagnosis: Procedures Operation Date: 10/20/20 10:30 Actual Procedure Side Surgeon p Hysterectomy Abdominal, Bilitaral Salpingectomy, Bilateral Oophorectomy Bilateral Huy Pollard MD Time Spent With Patient Time: Total time spent is greater than 50% in coordination of care (as do cumented) at patient's floor/unit and/or counseling patient: Time with patient: 15 - 24 minutes
--- NOTE | 2020-10-22 08:12 | P.DS_ITS ---
DS: Providers Provider Date of Service: 10/22/20 Date of admission: 10/20/20 12:03 Primary care physician: Di Irwin MD DS: Diagnosis Discharge Diagnosis (1) Post-operative state: Status: Acute DS: Medications Discharge Medications Home Medications: Home Medications Medication Instructions Recorded Confirmed No Known Home Meds 10/13/20 10/13/20 CROSSCUTTER ROLLED GLASS D/C Summary Hospital Course Hospital Course: POD#1 the pt amubulated, vizcarra removed, voided freely, clear liquid diet tolerated then diet was advanced to regular and was tolerated. POD#2 pt was D/c ed home Status at Discharge Cognitive/behavioral status at discharge: good, stable Time Spent with Patient Time attestation: Total time spent providing and/or coordinating discharge services: Quality: VTE Documentation of Mechanical Device: Intermittent pneumatic compression sleeve CROSSCUTTER ROLLED GLASS Physical Exam Vitals Vital signs: Temp Pulse Resp BP Pulse Ox 97.4 F 81 16 121/75 97 10/22/20 07:46 10/22/20 07:46 10/22/20 07:46 10/22/20 07:46 10/22/20 07:46 Body Mass Index 27.1 Abdomen Auscultation/Inspection/Palpation: Normal bowel sounds, Soft, Non-distended, No tenderness and Other (Incision= clean, dry and intact) 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 Discharge Summary Data Data Completed and Pending Completed studies during hospitalization: POD#1 Hct 32 Pending studies at discharge: Pending at discharge 10/20/20 11:38 Surgical [PTH] Routine Procedures Comments: Procedures Operation Date: 10/20/20 10:30 Actual Procedure Side Surgeon p Hysterectomy Abdominal, Bilitaral Salpingectomy, Bilateral Oophorectomy Bilateral Huy Pollard MD DS: Plan Patient/Caregiver Discharge Instructions Activity: increase activity as tolerated and other (Call if any of the following occur: Abdominal pain, incisional redness or gapping or discharge, nausea or vomiting, temperature above 100.4, vaginal bleeding. Follow up in the office in 5 days for staple removal, and 2 weeks for incisional check and 4 weeks for postop visit) Diet: advance to usual diet
[2020-10-22] MEDS: oxyCODONE HCl ER 10 MG TAB.ER.12H PO (09:37)
[2020-10-22] MEDS: oxyCODONE HCl Immed Release 5 MG TABLET 10 MG PO (09:45)
== END 2020-10-22 10:50 | disposition home or self-care (01) | DRG 519 ==
LOC: HO.SSSA 12:22 → HO.S3 14:44
PROVIDERS: Admitting Provider Obstetrics & Gynecology; PCP Internal Medicine; Visit Provider Obstetrics & Gynecology
PROC: 0UT90ZZ Resection of Uterus, Open Approach (ICD-10-PCS; principal; 2020-10-20 10:30)
DX: D25.9 Leiomyoma of uterus, unspecified (principal); N92.1 Excessive and frequent menstruation with irregular cycle; Z20.822 Contact with and (suspected) exposure to COVID-19; Z86.16 Personal history of COVID-19
CPT/HCPCS: 36415; 81025; 85007; 85025; 85027; 86850; 86900; 86901; 87635; 88307; 99024; J0131; J0690; J1100; J1885; J2250; J2405; J2550; J3010

== ENCOUNTER → 2020-10-29 12:10 | Outpatient (BNVA) | payer BC, SELFPAY | PROVIDERS: Visit Provider Obstetrics & Gynecology ==

== ENCOUNTER 2020-11-05 13:00 | Outpatient (REF) | payer BC, SELFPAY ==
--- NOTE | ~2020-11-05 | MM_ITS ---
EXAMINATION: MM DIAGNOSTIC DIGITAL BREAST TOMOSYNTHESIS, RIGHT CLINICAL INFORMATION: Six-month follow-up right breast calcifications upper outer aspect. The lifetime risk of breast cancer based on the Tyrer-Cuzick Model is 14%. COMPARISON: Mammography: 05/06/2020 and studies dating back to 09/11/2013. TECHNIQUE: Digital breast tomosynthesis is performed in both the craniocaudal and mediolateral oblique views along with computer-aided detection (CAD). Synthesized 2D images are generated from the tomosynthesis. Additional spot magnification views of the right breast in craniocaudal and 90 degree mediolateral views performed. FINDINGS: The breasts are heterogeneously dense, which may obscure small masses (ACR BI-RADS breast composition Category c). There is a stable appearance of the grouping of calcifications about the upper outer aspect of the right breast. Recommend 6 month follow-up study for continued surveillance. This can be done at time of screening left breast study. Results are provided to the patient at time of visit by the technologist. MM/MM tomosynthesis diagnostic RT IMPRESSION: There are no significant changes from prior study. ASSESSMENT: BI-RADS 3: Probably Benign RECOMMENDATION: Diagnostic mammography in 6 months. This patient's information was entered into a reminder system with a target due date for their next mammogram.
== END 2020-11-05 13:01 | disposition home or self-care (01) ==
LOC: HO.MAMMO 13:00
PROVIDERS: Visit Provider Internal Medicine
DX: R92.1 Mammographic calcification found on diagnostic imaging of breast (principal)
CPT/HCPCS: 77061; 77065

== ENCOUNTER → 2020-12-08 11:36 | Outpatient (BNVA) | payer BC, SELFPAY | PROVIDERS: Visit Provider Obstetrics & Gynecology ==

== ENCOUNTER → 2021-01-07 10:50 | Outpatient (BNVA) | payer BC, SELFPAY | PROVIDERS: PCP Internal Medicine; Visit Provider Obstetrics & Gynecology ==

== ENCOUNTER → 2021-02-08 09:39 | Outpatient (BNVA) | payer BC, SELFPAY | PROVIDERS: PCP Internal Medicine; Visit Provider Obstetrics & Gynecology ==

== ENCOUNTER 2021-05-10 10:45 | Outpatient (REF) | payer BC, SELFPAY ==
--- NOTE | ~2021-05-10 | MM_ITS ---
EXAMINATION: MM DIAGNOSTIC DIGITAL BREAST TOMOSYNTHESIS, BILATERAL CLINICAL INFORMATION: Due for yearly. Also follow-up probable benign calcifications upper outer right breast. Family history breast cancer, mother. TC score 13%. COMPARISON: Mammography: 11/05/2020, 05/06/2020, 04/13/2020 (BI-RADS 0), 08/10/2018, 07/10/2017 TECHNIQUE: Digital breast tomosynthesis is performed in both the craniocaudal and mediolateral oblique views along with computer-aided detection (CAD). Synthesized 2D images are generated from the tomosynthesis. Additional magnification right CC and magnification right ML views are obtained. FINDINGS: The breasts are heterogeneously dense, which may obscure small masses (ACR BI-RADS breast composition Category c). Parenchymal pattern is similar to prior exams and there is no interval mass or architectural abnormality or developing density. Biopsy clip marker again noted posterior 7:30 o'clock left breast. A few fine calcifications are again seen upper outer right breast similar to prior diagnostic exams. They will be reassessed again at time of next bilateral annual mammography, due in 12 months. Results are provided to the patient at time of visit by the technologist. MM/MM tomosynthesis diagnostic BI IMPRESSION: 1. Right: Probable benign calcifications stable. No significant changes. 2. Left: No mammographic evidence of malignancy. ASSESSMENT: BI-RADS 3: Probably Benign RECOMMENDATION: Diagnostic mammography at time of next annual exam, due in 12 months. This patient's information was entered into a reminder system with a target due date for their next mammogram.
== END 2021-05-10 10:46 | disposition home or self-care (01) ==
LOC: HO.MAMMO 10:45
PROVIDERS: PCP Internal Medicine; Visit Provider Internal Medicine
DX: R92.2 Inconclusive mammogram (principal)
CPT/HCPCS: 77062; 77066

== ENCOUNTER 2021-08-09 12:02 | Emergency (ER) | payer BC, SELFPAY ==
--- NOTE | ~2021-08-09 | XR_ITS ---
EXAMINATION: XR WRIST, RIGHT CLINICAL INFORMATION: Wrist injury COMPARISON: None TECHNIQUE: PA, lateral, and oblique views of the right wrist. FINDINGS: The bones and soft tissues are normal. No fracture. Alignment is anatomic with normal joint spaces. No erosions or abnormal soft tissue calcifications. XR/XR wrist RT min 3V IMPRESSION: Normal right wrist.
[2021-08-09 13:08] VITALS: BP 151/85; PULSE 59; RESP 18; TEMP 36.8; O2SAT 98; BMI 26.4
--- NOTE | 2021-08-09 19:18 | ED.EXTPRO ---
HPI - Extremity Problem General Chief complaint: Extremity Injury, Upper Stated complaint: hand in pain Time Seen by Provider: 08/09/21 18:28 Source: patient and family Mode of arrival: ambulatory Limitations: no limitations History of Present Illness MD Complaint: joint pain Onset (ago): week(s) (3) Pain Consistency: constant Location: right and upper extremity (Wrist) Quality: aching and constant Radiation: proximal Relieving factors: nothing Exacerbating factors: range of motion and palpation Associated symptoms: denies other symptoms Context: other (Repetitive hand movements at work) Related Data Previous Rx's Medication Instructions Recorded citalopram 20 mg tablet 20 mg PO DAILY 360 Days #90 tab 02/08/21 acetaminophen 300 mg-codeine 30 mg 1 tab PO Q8H PRN #14 tab 08/09/21 tablet naproxen 500 mg tablet 500 mg PO BID PRN #14 tab 08/09/21 prednisone 20 mg tablet 40 mg PO DAILY 5 Days #10 tab 08/09/21 Allergies Allergy/AdvReac Type Severity Reaction Status Date / Time No Known Allergies Allergy Verified 08/09/21 13:08 [No Known Allergies*] Review of Systems Review of Systems: Constitutional : No Weight loss, No Fever, No Chills, No Night Sweats, No Fatigue, No Malaise ENT/Mouth : No Hearing loss, No Ear Pain, No Nasal Congestion, No Sinus Pain, No Hoarseness, No sore throat, No Rhinorrhea, No Swallowing Difficulty Eyes: No Eye Pain, No Swelling, No Redness, No Foreign Body, No Discharge, No Vision Changes Cardiovascular : No Chest Pain, No SOB, No Dyspnea on Exertion, No Orthopnea, No Edema, No Palpitations Respiratory : No Cough, No Sputum, No Wheezing, No Smoke Exposure, No Dyspnea Gastrointestinal : No Nausea, No Vomiting, No Diarrhea, No Constipation, No abdominal Pain, No Hematochezia, No Melena Genitourinary : no irregular bleeding, No Dysuria, No Urinary Frequency, No Hematuria, No Urinary Incontinence, No Urgency, No Flank Pain, No Urinary Flow Changes, No Hesitancy Musculoskeletal : + Right wrist joint pain, No Myalgias, No Joint Swelling Skin : No Skin Lesions, No rash Neuro : No Weakness, No Numbness, No Paresthesias, No Loss of Consciousness, No Dizziness, No Headache Psych : No Anxiety/Panic, No Depression, No SI/HI/AH/VH, No Social Issues, Heme/Lymph: No Bruising, No Bleeding,No Lymphadenopathy Endocrine : No Polyuria, No Polydipsia, No Temperature Intolerance Yes all other systems are reviewed and are negative [facility] Past Medical History Attestation statement: The following information was validated with the patient. Medical History ASCUS with positive high risk HPV History of COVID-19 Hx of iron deficiency anemia Surgical History H/O abdominal hysterectomy H/O hand surgery H/O surgical removal of keloid History of endometrial ablation History of hysteroscopy Hx of tubal ligation Family History Family History Mother History of breast cancer Social History Social History Housing: Apartment Are you a primary care support representative to a significant other at home: No Do you presently have visiting nurse or other home services: No Alcohol intake: current Alcohol intake frequency: a few times a month Patient Tobacco Use Status: Never used Tobacco e-Cigarette/Vaping Use: Never Used Second Hand Smoke Exposure: No Advance Directives: No Advance Directives Information Provided: No service: No Current occupational status: employed Current occupational exposures/hazards: No Sexual orientation: Straight/Heterosexual Physical Exam Vital Signs: Vital Signs: Last Vital Signs Temp 98.3 F 08/09/21 13:08 Pulse 59 08/09/21 13:08 Resp 18 08/09/21 13:08 BP 151/85 H 08/09/21 13:08 Pulse Ox 98 08/09/21 13:08 BMI result Body Mass Index 26.4 vital signs have been reviewed as normal and appeared to be correct. Blood pressure 151/85 Heart rate normal. Respiration rate normal. Temperature normal. Oxygen saturation normal. Appearance: Alert. Oriented X3. No acute distress. Head: Normal external exam. Normocephalic. Atraumatic. Eyes: PERRLA. EOMI. Conjunctiva and sclera normal. Eyelids normal. ENT: Pharynx normal. Uvula midline. Moist mucous membranes. Neck: Normal inspection. Neck supple. FROM. CVS: Normal heart rate and rhythm. Respiratory: No respiratory distress. Painless inspiration. Skin: Skin warm and dry. Normal skin color. Normal skin turgor. No rashes/lesions/lacerations noted. Extremities: Patient moderate tenderness palpation to the right wrist at the ulnar aspect no soft tissue swelling and patient has full range of motion. Not consistent with septic joint. Negative for prayers test. Negative Tinel's test. Not consistent with tenosynovitis. Patient most likely tendinitis. No upper lower extremity edema noted. Otherwise all other extremities exhibit normal range of motion and nontender. Neuro: Oriented X 3. No motor deficit. No sensory deficit. Reflexes normal. Normal steady gait. No focal neuro deficits noted. Vascular: + radial pulses/+ 2 distal pedal pulses/+2 dorsalis pedis b/l. Normal cap refill. No cyanosis noted to upper extremity nails and lower extremity toes nails. Course Course Course Narrative: 46-year-old female presenting to the ED with complaints of right wrist pain radiating to her proximal forearm/elbow for the past 3 weeks worse today. 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 She reports that it may be related to this. She denies any other symptoms including chest pain or shortness of breath or any paresthesias. On exam she has limited range of motion due to pain although no obvious ligamentous or tendon injury noted. Not consistent with tenosynovitis. Not consistent with septic joint. Patient most likely tendinitis. Will DC home with symptomatic treatment instructions return if any new or worsening symptoms to follow up with PCP and to follow-up with Dr. Murphy the hand surgeon if her symptoms persist for longer than 2-3 weeks. Patient understands agrees with this plan. MDM - Extremity (Nontraumatic) Medical Records Attestation: I reviewed the patient's medical records. Imaging Data Right wrist x-ray: Attestation: I personally reviewed and interpreted this imaging study as follows: Radiologist's impression: FINDINGS: The bones and soft tissues are normal. No fracture. Alignment is anatomic with normal joint spaces. No erosions or abnormal soft tissue calcifications.? XR/XR wrist RT min 3V IMPRESSION: Normal right wrist. Procedures Orthopedic Splinting/Casting Injury #1: Side: right Upper Extremity Injury Location: wrist and hand Upper Extremity Immobilizer: wrist splint Discharge Plan Discharge Clinical Impression: Right wrist tendinitis, Muscle strain of right wrist Patient Disposition: Home, Self-Care Instructions: Wrist Injury (ED), Tendinitis (ED) Prescriptions: New naproxen 500 mg tablet 500 mg PO BID PRN (Reason: pain) Qty: 14 0RF prednisone 20 mg tablet 40 mg PO DAILY 5 Days Qty: 10 0RF acetaminophen-codeine 300-30 mg tablet 1 tab PO Q8H PRN (Reason: pain) Qty: 14 0RF No Action citalopram 20 mg tablet 20 mg PO DAILY 360 Days Qty: 90 3RF Referrals: Susy Murphy MD [Physician] - 2 weeks (If symptoms persist make a follow-up appointment within the next 2-3 weeks) Di Polanco MD [Primary Care Provider] - 2 days Stand Alone Forms: Work/School Release
[2021-08-09] MEDS: NaPROXEN 500 MG TABLET PO (20:14)
== END 2021-08-09 20:15 | disposition home or self-care (01) ==
PROVIDERS: Emergency Provider Internal Medicine; PCP Internal Medicine
DX: S63.501A Unspecified sprain of right wrist, initial encounter (principal); M65.231 Calcific tendinitis, right forearm; X58.XXXA Exposure to other specified factors, initial encounter; Y93.9 Activity, unspecified; Y92.9 Unspecified place or not applicable; Y99.9 Unspecified external cause status; Z79.899 Other long term (current) drug therapy
CPT/HCPCS: 29125; 73110; 99282; 99283

== ENCOUNTER → 2021-08-17 10:01 | Outpatient (BNVA) | payer BC, SELFPAY | PROVIDERS: PCP Internal Medicine; Visit Provider Obstetrics & Gynecology | DX: Z01.419 Encounter for gynecological examination (general) (routine) without abnormal findings (principal) ==

== ENCOUNTER → 2021-09-17 08:53 | Outpatient (BNVA) | payer BC, SELFPAY | PROVIDERS: PCP Internal Medicine; Visit Provider Physician Assistant | DX: M65.4 Radial styloid tenosynovitis [de Quervain] (principal) | CPT/HCPCS: J1100 ==

== ENCOUNTER → 2021-09-24 09:25 | Outpatient (BNVA) | payer OTHER, SELFPAY | PROVIDERS: PCP Internal Medicine; Visit Provider Internal Medicine | DX: M77.8 Other enthesopathies, not elsewhere classified (principal) | CPT/HCPCS: 99202 ==

== ENCOUNTER → 2021-10-04 11:23 | Outpatient (BNVA) | payer OTHER, SELFPAY | PROVIDERS: PCP Internal Medicine; Visit Provider Internal Medicine | DX: M65.4 Radial styloid tenosynovitis [de Quervain] (principal) | CPT/HCPCS: 99213 ==

== ENCOUNTER → 2021-10-14 10:32 | Outpatient (BNVA) | payer BC, SELFPAY | PROVIDERS: PCP Internal Medicine; Visit Provider Nurse Practitioner Family | DX: Z12.11 Encounter for screening for malignant neoplasm of colon (principal); K59.04 Chronic idiopathic constipation | CPT/HCPCS: 99202 ==

== ENCOUNTER → 2021-10-18 11:55 | Outpatient (BNVA) | payer OTHER, SELFPAY | PROVIDERS: PCP Internal Medicine; Visit Provider Internal Medicine | DX: M77.8 Other enthesopathies, not elsewhere classified (principal) | CPT/HCPCS: 99213 ==

== ENCOUNTER 2021-12-01 13:30 | Outpatient (RCR) | payer OTHER, BC, SELFPAY ==
--- NOTE | 2021-10-13 14:01 | MHC.OT.EP ---
[address] [phone] Occupational Therapy Plan of Care Date of Evaluation: 10/13/21 Diagnosis: Right Dequervains tenosynovitis Assessment: Pt. is a 46 y/o female with right wrist pain following a work related injury. S&S concurrent with right Dequervains tenosynovitis. Pt. 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 A 69.5% limitation was reported on the Quick DASH assessment. Pt. would benefit from skilled OT services to address noted barriers and assist in return to PLOF. Frequency and Duration: The patient will be seen 2x/wk for 6 weeks Short Term Goals: Decrease right wrist/thumb pain to <3/10 Improve R wrist flex/ext by 10 degrees each IND with orthosis use as needed IND with HEP Improve R blood bank business manager strength by 5# [employer] Goals: Pain free with BADLs/IADL's Improve R wrist and thumb ROM to WNL s IND with progression of HEP Improve R blood bank business manager strength to >50# Improve R lat pinch strength to 8# to increase ease with turning cifuentes Treatment Plan: Therapeutic Exercise Therapeutic Activity Home Exercise Program Splinting Patient Education Desensitization/Sensory Re-ed Edema Control Ultrasound Iontophoresis Paraffin Fluidotherapy MHP Cold Packs Joint Mobilization Soft Tissue Mobilization Kinesiotaping Electronically Signed By: Melissa Salazar, OTR/L Please Sign and return to therapist. Thank you once again for your referral.
--- NOTE | 2021-12-01 14:11 | MHC.OT.DC ---
[address] [phone] F: [phone] Occupational Therapy Discharge Note Provider: Claudia Prince PA-C Diagnosis: Right Dequervains tenosynovitis Date of Evaluation: 10/13/21 Date of Discharge: 12/01/21 Treatments to Date: 12 Discharge Status: Independent with HEP Recommend MD Follow-up Discharge Summary: Imelda has been coming to OT for the past six weeks to address acute Dequervain's tendinitis. She has been wearing thumb spica orthosis and modifying daily activities, also still out of work. She continues to have moderate-high pain in right radial wrist, now with more pain in left radial wrist from attempting to compensate. Pains worsens with every day activity and she has found little to no relief w/ orthosis wear, activity modification and therapy services. She is to continue orthosis wear as needed for pain relief and protection and continue wrist and thumb ROM within comfortable range, but recommend follow-up with ortho due to persistent pain and plateau in services. Electronically Signed By: BARBIE Balbuena/Candelario HENNINGT Reviewed/agree with student documentation: N/A Therapist: Please Sign and return to therapist, thank you for your referral.
== END 2021-12-01 14:12 | disposition home or self-care (01) ==
LOC: HO.OT 13:30
PROVIDERS: Visit Provider Physician Assistant Medical
DX: M65.4 Radial styloid tenosynovitis [de Quervain] (principal)
CPT/HCPCS: 97033; 97035; 97110; 97140; 97165

== ENCOUNTER → 2021-12-14 10:18 | Outpatient (BNVA) | payer OTHER, SELFPAY | PROVIDERS: PCP Internal Medicine; Visit Provider Orthopaedic Surgery | DX: M65.4 Radial styloid tenosynovitis [de Quervain] (principal) | CPT/HCPCS: 99212 ==

== ENCOUNTER 2022-01-13 07:12 | Day surgery (SDC) | payer OTHER, MEDICAID, SELFPAY ==
[2022-01-13 07:35] VITALS: BP 145/73; PULSE 70; RESP 16; TEMP 36.2; O2SAT 98; BMI 25.7
[2022-01-13 09:32] VITALS: BP 140/80; PULSE 72; RESP 17; TEMP 36.7; O2SAT 97
--- NOTE | 2022-01-13 09:33 | P.OP_ITS ---
Operative Note Operative Note Date of Service: 01/13/22 Narrative: Operative Note Preop diagnosis: 1. Right DeQuervain's tenosynovitis Postop diagnosis: 1. right DeQuervain's tenosynovitis Procedure: 1. right 1st dorsal compartment release 2. Right extensor pollicis brevis and abductor pollicis longus tenosynovectomy Surgeon: Susy Murphy MD Anesthesia: local block using 1% lidocaine with epinephrine Findings: Thickened 1st dorsal compartment. EPB in a separate compartment with abundant inflammatory tenosynovium about both the APL and EPB tendons EBL: Less than 5 mL Tourniquet time: None Specimens: None Complications: None Disposition: Brought to recovery room in stable condition Plan: Follow-up for 7-10 days for wound check and suture removal Indications: The patient is 46 years old, with right DeQuervain's tenosynovitis that has been unresponsive to nonoperative management. The risks and benefits of operative treatment including but not limited to risk of damage to blood vessels, nerves, tendons, infection, persistent pain, persistent symptoms, recurrence or possible need for additional surgery were discussed with the patient and the patient wishes to proceed with surgery. Procedure: Once consent was obtained a local block was performed in the preop area using a combination of 1% lidocaine with epinephrine. The patient was then brought back to the operating suite and placed on the operative table in supine position. A tourniquet was applied to the proximal aspect of the right upper extremity and the limb was prepped and draped in a standard surgical fashion. Once assured that we had a good block, a 1.5 cm longitudinal incision was made centered over the 1st dorsal compartment as it passed over the radial styloid of the right wrist. The incision was made through the skin to the subcutaneous ti ssues using a #15 blade. Careful dissection was made down to the level of the 1st dorsal compartment using tenotomy scissors, with care being taken to protect the nearby branches of the superficial radial nerve. Once the 1st dorsal compartment was exposed, A longitudinal incision was made in the 1st dorsal compartment 1st using a #15 blade, then using tenotomy scissors under direct visualization. The 1st dorsal compartment was noted to be thickened. she was also found to have abundant inflammatory tenosynovium about both the APL and EPB tendons. I then performed a tenosynovectomy by excising this inflammatory tenosynovium using tenotomy scissors. Following our release And tenosynovectomy, we saw smooth gliding abductor pollicis longus and extensor pollicis brevis tendons. Once satisfied with our 1st dorsal compartment release the wound was copiously irrigated with normal saline and hemostasis was obtained with a brief period of local pressure. The skin edges were reapproxi mated with some 5.0 nylon suture material. A sterile dressing was applied. The patient appears to have tolerated the procedure well and with no complications. All digits were well vascularized at the conclusion of the case.
--- NOTE | 2022-01-13 09:33 | MHC.SHP ---
Pre-Procedural Eval Section A Date of Service: 01/13/22 The patient is an INPATIENT: No Changes since office visit: No Cold of Flu in the past 2 weeks, No New Medical Problems, No Changes in Medication and No Patient answered all questions The History & Physical has been completed within 30 days and I have reviewed it.: Yes Section B Chief Complaint: Radial styloid tenosynovitis [de Quervain] Allergies: Allergies Allergy/AdvReac Type Severity Reaction Status Date / Time No Known Allergies Allergy Verified 12/14/21 11:13 [No Known Allergies*] Plan I have reviewed the history and physical and performed a pertinent physical examination on my patient. No changes have occurred unless specified.
== END 2022-01-13 09:30 | disposition home or self-care (01) ==
PROVIDERS: PCP Internal Medicine; Visit Provider Orthopaedic Surgery
PROC: (CPT 25116; principal; 2022-01-13 10:00)
DX: M65.4 Radial styloid tenosynovitis [de Quervain] (principal); Z86.16 Personal history of COVID-19
CPT/HCPCS: 25116; 25000; J0171; J2795

== ENCOUNTER → 2022-01-25 08:42 | Outpatient (BNVA) | payer OTHER, MEDICAID, SELFPAY | PROVIDERS: PCP Internal Medicine; Visit Provider Orthopaedic Surgery | DX: M65.4 Radial styloid tenosynovitis [de Quervain] (principal) | CPT/HCPCS: 99212 ==

== ENCOUNTER 2022-03-10 09:03 | Day surgery (SDC) | payer OTHER, SELFPAY ==
[2022-03-10 09:05] VITALS: BMI 24.0
[2022-03-10 09:07] VITALS: BP 143/74; PULSE 79; RESP 18; TEMP 35.9; O2SAT 98
--- NOTE | 2022-03-10 09:56 | MHC.SHP ---
Pre-Procedural Eval Section A Date of Service: 03/10/22 The patient is an INPATIENT: No Changes since office visit: No Cold of Flu in the past 2 weeks, No New Medical Problems, No Changes in Medication and No Patient answered all questions The History & Physical has been completed within 30 days and I have reviewed it.: Yes Section B Chief Complaint: Radial styloid tenosynovitis [de Quervain] Allergies: Allergies Allergy/AdvReac Type Severity Reaction Status Date / Time No Known Allergies Allergy Verified 03/02/22 13:50 [No Known Allergies*] Plan I have reviewed the history and physical and performed a pertinent physical examination on my patient. No changes have occurred unless specified. Time Spent With Patient Time: Total time managing care of this patient today ____ minutes.
--- NOTE | 2022-03-10 09:56 | W.PM.OPN ---
Operative Note Operative Note Date of Service: 03/10/22 Narrative: Operative Note Preop diagnosis: 1. left DeQuervain's tenosynovitis Postop diagnosis: 1. left DeQuervain's tenosynovitis Procedure: 1. left 1st dorsal compartment release Surgeon: Susy Murphy MD Anesthesia: local block using 1% lidocaine with epinephrine Findings: significantly Thickened 1st dorsal compartment. APL and EPB tendons and supper compartments. There was an hourglass deformity of the EPB tendon with enlargement of the tendon distal to the area of compression. EBL: Less than 5 mL Tourniquet time: None Specimens: None Complications: None Disposition: Brought to recovery room in stable condition Plan: Follow-up for 7-10 days for wound check and suture removal Indications: The patient is 46 years old, with left DeQuervain's tenosynovitis that has been unresponsive to nonoperative management. The risks and benefits of operative treatment including but not limited to risk of damage to blood vessels, nerves, tendons, infection, persistent pain, persistent symptoms, recurrence or possible need for additional surgery were discussed with the patient and the patient wishes to proceed with surgery. Procedure: Once consent was obtained a local block was performed in the preop area using a combination of 1% lidocaine with epinephrine. The patient was then brought back to the operating suite and placed on the operative table in supine position. A tourniquet was applied to the proximal aspect of the left upper extremity and the limb was prepped and draped in a standard surgical fashion. Once assured that we had a good block, a 1.5 cm longitudinal incision was made centered over the 1st dorsal compartment as it passed over the radial styloid of the left wrist. The incision was made through the skin to the subcutaneous tissues using a #15 blade. Careful dissection was made down to the level of the 1st dorsal compartment using tenotomy scissors, with care being taken to protect the nearby branches of the superficial radial nerve. Once the 1st dorsal compartment was exposed, A longitudinal incision was made in the 1st dorsal compartment 1st using a #15 blade, then using tenotomy scissors under direct visualization. The 1st dorsal compartment was noted to be Significantly thickened. APL and EPB were in separate compartments and both compartments were released longitudinally. The EPB tendon was noted to have an hourglass deformity with thickening of the tendon distal to the area of compression. . Following our release, we saw smooth gliding abductor pollicis longus and extensor pollicis brevis tendons. Once satisfied with our 1st dorsal compartment release the wound was copiously irrigated with normal saline and hemostasis was obtained with a brief period of local pressure. The subcutaneous layer was closed with some 4-0 Vicryl suture, and the skin edges were reapproximated with some 5.0 nylon suture material. A sterile dressing was applied. The patient appears to have tolerated the procedure well and with no complications. All digits were well vascularized at the conclusion of the case.
[2022-03-10 11:05] VITALS: BP 137/78; PULSE 69; RESP 16; TEMP 36.8; O2SAT 99
== END 2022-03-10 11:20 | disposition home or self-care (01) ==
PROVIDERS: PCP Internal Medicine; Visit Provider Orthopaedic Surgery
PROC: (CPT 25000; principal; 2022-03-10 13:50)
DX: M65.4 Radial styloid tenosynovitis [de Quervain] (principal); Z86.16 Personal history of COVID-19
CPT/HCPCS: 25000; J0171

== ENCOUNTER → 2022-03-23 13:12 | Outpatient (BNVA) | payer OTHER, SELFPAY | PROVIDERS: PCP Internal Medicine; Visit Provider Orthopaedic Surgery | DX: Z13.89 Encounter for screening for other disorder (principal) ==

== ENCOUNTER → 2022-04-27 08:43 | Outpatient (BNVA) | payer OTHER, SELFPAY | PROVIDERS: PCP Internal Medicine; Visit Provider Orthopaedic Surgery | DX: Z13.89 Encounter for screening for other disorder (principal) ==

== ENCOUNTER 2022-05-06 10:30 | Outpatient (RCR) | payer OTHER, SELFPAY ==
--- NOTE | 2022-03-29 14:23 | MHC.OT.EP ---
[address] [phone] Occupational Therapy Plan of Care Date of Evaluation: 03/29/22 Diagnosis: Right tenosynovectomy 1st dorsal compartment 01/13/22, Left tenosynovectomy 1st dorsal compartment 03/10/22 Assessment: 46 yo right hand dominant female w/ recent hx of right De Quervain's Tenosynovitis, was seen in OT w/ no significant gains or improvements in pain. She has since undergone tenosynovectomy 01/15/22. During her treatment and conservative management, she also developed tenosynovitis in left wrist, and is now post-op release left first dorsal compartment 03/10/22. On assessment, she is doing fairly well post operatively and is encouraged by progress and low pain. Both surgical incisions are well healed, more scarring on left than right and mild edema, again moreso on left. She has good range of motion and has regained much function in right hand/arm, still limiting activity in left. She will benefit from cont'd therapy services for optimal range, strengthening, desensitization and scar management w/ goal of independent with daily activities and return to full work duties. Frequency and Duration: The patient will be seen 2x/wk for 4 weeks Short Term Goals: Ind w/ scar massage/mobilization Ind w/ self desensitization techniques Good follow through w/ HEP Good follow through w/ use of heat and cold modalities as appropriate [employer] Goals: Left gross grasp 40lb Right gross grasp 50lb Pt to demo lift and carry >25lb w/ ease Full AROM left wrist compared to right Pain free B/L wrists w/ moderate daily activities Pt to report ease w/ sleeping Treatment Plan: Therapeutic Exercise Therapeutic Activity Home Exercise Program Patient Education Desensitization/Sensory Re-ed Edema Control ADL Training Ultrasound Paraffin Fluidotherapy MHP Cold Packs Soft Tissue Mobilization Kinesiotaping Electronically Signed By: Sarah Mcdowell OTR/L CHT Please Sign and return to therapist. Thank you once again for your referral.
--- NOTE | 2022-04-26 14:33 | MHC.OT.OP ---
[address] [phone] F: [phone] Occupational Therapy Progress Note Diagnosis: Right tenosynovectomy 1st dorsal compartment 01/13/22, Left 03/10/22 tenosynovectomy 1st dorsal compartment Date of Surgery: 01/15/22 Date of Evaluation: 03/29/22 Treatments to Date: 6 Subjective: I just can't do any heavy lifting Pain Score: 2 Pain Location: Left radial wrist, pain free in right Objective Measures: Wrist ROM WFL B/L'ly Gross Grasp R 55lb L 45lb Status: Progressing Assessment: Imelda is progressing well post-op B/L Dupuytren's releases (right 01/13, left 03/10). Her right wrist is pain free and she has good use every day activities. She still has some discomfort in left radial wrist, primarily w/ heavier lifting and end range wrist deviation and flexion. We have begun progressing strengthening exercises and she incorporates use of non-dominant left hand into everyday use, but avoids heavy lifting (laundry, pots/pans). Good understanding of scar management techniques and activity modification. Short Term Goals: Ind w/ scar massage/mobilization (met) Ind w/ self desensitization techniques (met) Good follow through w/ HEP (met) Good follow through w/ use of heat and cold modalities as appropriate (met) Alf Goals: Left gross grasp 40lb (met) Right gross grasp 50lb (met) Pt to demo lift and carry >25lb w/ ease Full AROM left wrist compared to right (met) Pain free B/L wrists w/ moderate daily activities Pt to report ease w/ sleeping Frequency and Duration: The patient will be seen 2x/wk for 2 weeks Treatment Plan: Therapeutic Exercise Therapeutic Activity Home Exercise Program Patient Education Desensitization/Sensory Re-ed Edema Control ADL Training Ultrasound Paraffin Fluidotherapy MHP Cold Packs Joint Mobilization Soft Tissue Mobilization Kinesiotaping Electronically Signed By: BARBIE Balbuena/Candelario REILLY
--- NOTE | 2022-05-06 10:55 | MHC.OT.DC ---
[address] [phone] F: [phone] Occupational Therapy Discharge Note Provider: Dr Susy Murphy Diagnosis: Right tenosynovectomy 1st dorsal compartment 01/13/22, Left 03/10/22 tenosynovectomy 1st dorsal compartment Date of Surgery: 01/15/22 Date of Evaluation: 03/29/22 Date of Discharge: 05/06/22 Treatments to Date: 7 Discharge Status: Achieved Goals Improved Function Independent with HEP Discharge Summary: Imelda is doing very well post-op B/L Dupuytren's releases and has been cleared for return to work. She was seen for last visit today and has no complaints for pain, strength or movement. We have added elastomere scar pad for passive scar tissue management at nighttime, but overall is otherwise back to functional baseline. Electronically Signed By: BARBIE Balbuena/Candelario CHT Reviewed/agree with student documentation: Therapist: Please Sign and return to therapist, thank you for your referral.
== END 2022-05-06 10:56 | disposition home or self-care (01) ==
LOC: HO.OT 10:30
PROVIDERS: Visit Provider Orthopaedic Surgery
DX: M65.4 Radial styloid tenosynovitis [de Quervain] (principal)
CPT/HCPCS: 97110; 97140; 97165

== ENCOUNTER 2022-05-12 12:28 | Outpatient (REF) | payer OTHER, SELFPAY ==
--- NOTE | ~2022-05-12 | MM_ITS ---
EXAMINATION: MM DIAGNOSTIC DIGITAL BREAST TOMOSYNTHESIS, BILATERAL CLINICAL INFORMATION: Due for yearly. Also follow-up probable benign calcifications upper outer right breast. The lifetime risk of breast cancer based on the Tyrer-Cuzick Model is 13%. COMPARISON: Mammography: 05/10/2021, 11/05/2020, 05/06/2020, 04/13/2020 (BI-RADS 0), 08/10/2018 TECHNIQUE: Digital breast tomosynthesis is performed in both the craniocaudal and mediolateral oblique views along with computer-aided detection (CAD). Synthesized 2D images are generated from the tomosynthesis. Additional magnification right CC x2 and right magnification ML views are obtained. FINDINGS: The breasts are heterogeneously dense, which may obscure small masses (ACR BI-RADS breast composition Category c). Breast tissue composition borders on average fibroglandular. Fibronodular parenchymal pattern is similar to prior exams. There is no significant mass or developing density or architectural abnormality. Biopsy clip marker again noted posterior lower inner left breast. No abnormal calcifications. The axilla and skin contours are unremarkable. Additional magnification views right breast show no focal three-dimensional grouped or increasing calcifications. Finding for follow-up now considered to be benign. Results are provided to the patient at time of visit by the technologist. MM/MM tomosynthesis diagnostic BI IMPRESSION: No mammographic evidence of malignancy. ASSESSMENT: BI-RADS 2: Benign RECOMMENDATION: Routine annual mammography screening. This patient's information was entered into a reminder system with a target due date for their next mammogram.
== END 2022-05-12 12:29 | disposition home or self-care (01) ==
LOC: HO.MAMMO 12:28
PROVIDERS: PCP Internal Medicine; Visit Provider Internal Medicine
DX: R92.1 Mammographic calcification found on diagnostic imaging of breast (principal)
CPT/HCPCS: 77062; 77066

== ENCOUNTER → 2022-06-01 12:17 | Outpatient (BNVA) | payer OTHER, SELFPAY | PROVIDERS: PCP Internal Medicine; Visit Provider Orthopaedic Surgery | DX: Z47.89 Encounter for other orthopedic aftercare (principal) | CPT/HCPCS: 99212 ==

== ENCOUNTER 2022-06-24 08:41 | Day surgery (SDC) | payer OTHER, SELFPAY ==
[2022-06-21 10:34] VITALS: BMI 27.4
--- NOTE | 2022-06-23 12:31 | HO.ANESPROP2 ---
Documented by User: Naheed Boone NP 06/23/22 12:31 HPI - Anesthesia Eval Consult details Narrative: 47yo F for Colonoscopy PMFSH Active Problems Active Problems: All Active Problems (Updated 05/03/22 @ 11:54 by LESLEY Stallworth) Pre-procedure lab exam (Acute) Abnormal uterine bleeding (AUB) (Acute) History of uterine fibroid (Acute) Pelvic pain in female (Acute) Bacterial vaginosis (Acute) Microscopic hematuria (Acute) Menometrorrhagia (Acute) Well woman exam (Acute) Endometritis (Acute) Blepharitis of eyelid of right eye (Acute) Iron deficiency (Chronic) Post-operative state (Acute) Hot flashes (Acute) De Quervain's tenosynovitis, right (Acute) De Quervain's tenosynovitis, left (Acute) Past Medical History Medical History ASCUS with positive high risk HPV History of COVID-19 Hx of iron deficiency anemia Family History Family History Mother History of breast cancer Surgical History Surgical History H/O abdominal hysterectomy H/O hand surgery H/O surgical removal of keloid History of endometrial ablation History of hysteroscopy Hx of tubal ligation Social History Social History Household Members: Spouse Housing: House Are you a primary patient care representative to a significant other at home: No Do you presently have visiting nurse or other home services: No Alcohol intake: current Alcohol intake frequency: holidays/special occasions only Patient Tobacco Use Status: Never used Tobacco e-Cigarette/Vaping Use: Never Used Second Hand Smoke Exposure: No Substance Use Type: Marijuana Are you DNR?: No Advance Directives: No Advance Directives Information Provided: Yes Nutrition Risks: No Nutritional Risk service: No Current occupational status: employed 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 Current occupational exposures/hazards: No Sexual orientation: Straight/Heterosexual Cognitive needs: No Hearing needs: No Vision needs: No Meds Allergies Allergy/AdvReac Type Severity Reaction Status Date / Time No Known Allergies Allergy Verified 06/01/22 12:42 [No Known Allergies*] Home Medications Medication Instructions Recorded Confirmed Last Taken Type No Known Home Meds 06/01/22 06/01/22 Unknown History Exam Exam Date and Time: June 23, 2022 1231 Height,Weight and Vital Signs: Height 5 ft 4 in Weight 72.575 kg Assessment and Plan Assessment Anesthesia Assessment: Chart Reviewed Documented by User: Lisa Ramírez MD 06/24/22 10:02 [facility] Past Medical History Medical History ASCUS with positive high risk HPV History of COVID-19 Hx of iron deficiency anemia Family History Family History Mother History of breast cancer Family history of problems with anesthesia: No Surgical History Surgical History H/O abdominal hysterectomy H/O hand surgery H/O surgical removal of keloid History of endometrial ablation History of hysteroscopy Hx of tubal ligation History of Problems with Anesthesia: No Social History Social History Household Members: Spouse Housing: House Are you a primary patient care representative to a significant other at home: No Do you presently have visiting nurse or other home services: No Alcohol intake: current Alcohol intake frequency: holidays/special occasions only Patient Tobacco Use Status: Never used Tobacco e-Cigarette/Vaping Use: Never Used Second Hand Smoke Exposure: No Substance Use Type: Marijuana Are you DNR?: No Advance Directives: No Advance Directives Information Provided: Yes Nutrition Risks: No Nutritional Risk service: No Current occupational status: employed 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 Current occupational exposures/hazards: No Sexual orientation: Straight/Heterosexual Cognitive needs: No Hearing needs: No Vision needs: No Meds Allergies Allergy/AdvReac Type Severity Reaction Status Date / Time No Known Allergies Allergy Verified 06/01/22 12:42 [No Known Allergies*] Home Medications Medication Instructions Recorded Confirmed Last Taken Type No Known Home Meds 06/01/22 06/01/22 Unknown History Exam Airway Mallampati Class: II TM Dist: >3cm Neck ROM: Full Loose/Missing/Broken Teeth: No Heart: rr Lungs: cta Assessment and Plan Assessment Anesthesia Assessment: Anesthesia Plan Discussed Final Anesthetic Review Family History of Problems with Anesthesia: No History of Problems with Anesthesia: No NPO: Yes ASA Class: II Final Preanesthetic Review: No Changes in Pt Med Stat, Meds/Allgs Chart Reviewed, Consent Obtained/Reviewed and Anes Risks/Benef Reviewed Patient Risk: Low Procedure Risk: Low Anesthetic Plan Anesthetic Plan: MAC: Disposition: Standard PACU
[2022-06-24 09:21] VITALS: BP 126/87; PULSE 66; RESP 17; TEMP 36.1; O2SAT 99
--- NOTE | 2022-06-24 09:22 | MHC.SHP ---
Pre-Procedural Eval Section A Date of Service: 06/24/22 The patient is an INPATIENT: No The History & Physical has been completed within 30 days and I have reviewed it.: No Section B Chief Complaint: screening Relevant Family History (Specify if Yes): No Relevant Social History: None Present Medications: see Short Stay Collaborative assessment Medical History: Significant History (ASCUS with positive high risk HPV History of COVID-19 Hx of iron deficiency anemia) History of Previous Operations: Relevant previous surgery/procedure and date(s) (H/O abdominal hysterectomy H/O hand surgery H/O surgical removal of keloid History of endometrial ablation History of hysteroscopy Hx of tubal ligation) Allergies: Allergies Allergy/AdvReac Type Severity Reaction Status Date / Time No Known Allergies Allergy Verified 06/01/22 12:42 [No Known Allergies*] Review of Systems Sugical H&P ROS: Negative: Constitution, Cardiovascular, Respiratory and Gastrointestinal Exam Surgical H&P Exam: Normal: Heart, Normal: Lungs, Normal: Extremities and Normal: Abdomen Plan Diagnosis/Plan: Unchanged I have reviewed the history and physical and performed a pertinent physical examination on my patient. No changes have occurred unless specified. Time Spent With Patient Time: Total time managing care of this patient today ____ minutes.
[2022-06-24] MEDS: Lactated Ringers 1,000 ML 100 ML IVCONT (09:29)
--- NOTE | 2022-06-24 10:21 | P.OP_ITS ---
Operative Note Operative Note Date of Service: 06/24/22 Narrative: COLONOSCOPY TILL CECUM WITH BIOPSIES Indication:? Colon cancer screening Endoscopist:? Brayan Madrid MD Anesthesia Provider:?Dr Ramírez Anesthesia type:?MAC Consent: Indications for the procedure and potential complications of bleeding, perforation, reaction to medications and missed diagnosis were discussed with the patient and informed consent was obtained. Instrument: Olympus PCF H 190 L variable stiffness pediatric colonoscope Monitoring: Vital signs and clinical assessment, intermittent blood pressure monitoring, continuous EKG monitoring, Pulse oximetry and Carbon Dioxide monitoring were done throughout the procedure. Please see anesthesia flowsheet. Colon withdrawl time was 15 minutes. Procedure: The patient was placed in the left lateral decubitis position and pre-procedure medications were administered. After a digital rectal examination of the ano-rectum, the video colonoscope was inserted into the rectum and advanced through the colon to the cecum. The colonoscope was slowly withdrawn in a retrograde panoramic fashion and the colon mucosa was carefully examined including a retroflexed view of the rectum. Findings and interventions are described below. Procedure Difficulty: Without difficulty Findings: Terminal Ileum: Not evaluated Cecum: Normal Ascending Colon: Normal Transverse Colon: Normal Descending Colon: A 2-3 mm diminutive appearing polyp - removed with a cold bx Sigmoid Colon: Mild diverticulosis Rectum: Normal Ano-rectum: Small internal hemorrhoids Colon preparation: Excellent Impression and Post Procedure Diagnosis: Colonoscopy Findings: One tiny polyp removed Mild diverticulosis seen in the sigmoid colon Small hemorrhoids on retroflexed exam. Plan: Await pathology results Patient has an appointment on 07/08/22 in the [facility] with Dana Case FNP- [facility]. Repeat Colonoscopy interval based on path results - in 5 years if polyps are adenomatous and 10 years if polyps are hyperplastic. Above findings were reviewed with the patient and colon polyps and diverticulosis handouts were given in the discharge area
[2022-06-24 11:03] VITALS: BP 110/68; PULSE 77; RESP 16; TEMP 36.2; O2SAT 98
[2022-06-24 11:18] VITALS: BP 112/63; PULSE 84; RESP 16; O2SAT 98
[2022-06-24 11:33] VITALS: BP 124/75; PULSE 60; RESP 16; TEMP 36.4; O2SAT 99
== END 2022-06-24 11:59 | disposition home or self-care (01) ==
PROVIDERS: PCP Internal Medicine; Visit Provider Internal Medicine Gastroenterology
PROC: 0DJD8ZZ Inspection of Lower Intestinal Tract, Via Natural or Artificial Opening Endoscopic (ICD-10-PCS; CPT 45378; principal; 2022-06-24 10:10)
DX: Z12.11 Encounter for screening for malignant neoplasm of colon (principal); K63.5 Polyp of colon; K57.30 Diverticulosis of large intestine without perforation or abscess without bleeding; K64.8 Other hemorrhoids; K59.00 Constipation, unspecified; K21.9 Gastro-esophageal reflux disease without esophagitis; Z86.16 Personal history of COVID-19
CPT/HCPCS: 45380; 88305

== ENCOUNTER 2022-06-27 08:39 | Outpatient (REF) | payer OTHER, SELFPAY ==
--- NOTE | ~2022-06-27 | MR_ITS ---
EXAMINATION: MR WRIST WITHOUT CONTRAST, LEFT CLINICAL INFORMATION: Pain left wrist. Patient reports left wrist surgery February 2022. Patient indicates tendon surgery. COMPARISON: X-ray of the left wrist July 2021. TECHNIQUE: MRI of the left wrist is performed without contrast on a high-field MRI scanner. FINDINGS: Exam is limited by image-degrading motion artifact. MUSCLES/TENDONS: There is mild enlargement and heterogeneity of the extensor pollicis brevis within the 1st extensor compartment beginning about 1 cm proximal to the tip of the radial styloid and extending distally approximately 1 cm. Could reflect postsurgical change, tendinosis and/or intrasubstance partial tearing but no measurable defect or tendon retraction. There is minimal tenosynovitis. There is some minimal low signal stranding in the overlying subcutaneous soft tissues raises the question of prior surgery. The remaining muscles and tendons are normal. SUBCUTANEOUS SOFT TISSUES: No additional abnormalities other than that noted above. NEUROVASCULAR STRUCTURES: Normal. INTRAOSSEOUS LIGAMENTS: Normal. TRIANGULAR FIBROCARTILAGE COMPLEX: There is thinning of the central aspect of the triangular fibrocartilage and probable full-thickness transverse 2 mm defect. See coronal image 13 series 8. BONE/CARTILAGE: Normal. JOINT FLUID: Normal. MR/MR wrist LT wo con IMPRESSION: 1. Focal mild abnormality of the extensor pollicis brevis tendon compatible with postsurgical change, tendinosis and/or intrasubstance partial tearing but no measurable defect or tendon retraction. Minimal tenosynovitis. 2. Findings in the central aspect of the triangular fibrocartilage compatible with a full-thickness tear. 3. Exam is limited by image-degrading motion artifact.
== END 2022-06-27 08:40 | disposition home or self-care (01) ==
LOC: HO.MRI 08:39
PROVIDERS: PCP Internal Medicine; Visit Provider Orthopaedic Surgery
DX: M25.532 Pain in left wrist (principal)
CPT/HCPCS: 73221

== ENCOUNTER → 2022-07-06 10:08 | Outpatient (BNVA) | payer OTHER, SELFPAY | PROVIDERS: PCP Internal Medicine; Visit Provider Orthopaedic Surgery | DX: M65.4 Radial styloid tenosynovitis [de Quervain] (principal) | CPT/HCPCS: 99212 ==

== ENCOUNTER 2022-08-01 10:48 | Day surgery (SDC) | payer OTHER, SELFPAY ==
--- NOTE | 2022-08-01 09:18 | W.PM.OPN ---
Operative Note Operative Note Date of Service: 08/01/22 Narrative: Operative Note Preop diagnosis: 1. Left DeQuervain's tenosynovitis Postop diagnosis: 1. Left DeQuervain's tenosynovitis Procedure: 1. Left repeat 1st dorsal compartment release 2. Tenosynovectomy and removal of scar from about left abductor pollicis longus tendon Surgeon: Susy Murphy MD Anesthesia: local block using 1% lidocaine with epinephrine Findings: There was some scarring about the left abductor pollicis longus tendon. Tendon itself appeared to be in good condition. Also with regards to the left APB tendon we see an improvement and normalization of the previously seen hourglass deformity. EBL: Less than 5 mL Tourniquet time: None Specimens: Scarred tenosynovium from about APL tendon sent for histopathology Complications: None Disposition: Brought to recovery room in stable condition Plan: Follow-up for 7-10 days for wound check and suture removal Indications: The patient is 47 years old, with left DeQuervain's tenosynovitis that has been unresponsive to nonoperative management. The risks and benefits of operative treatment including but not limited to risk of damage to blood vessels, nerves, tendons, infection, persistent pain, persistent symptoms, recurrence or possible need for additional surgery were discussed with the patient and the patient wishes to proceed with surgery. Procedure: Once consent was obtained a local block was performed in the preop area using a combination of 1% lidocaine with epinephrine. The patient was then brought back to the operating suite and placed on the operative table in supine position. A tourniquet was applied to the proximal aspect of the left upper extremity and the limb was prepped and draped in a standard surgical fashion. Once assured that we had a good block, a 1.5 cm longitudinal incision was made centered over the 1st dorsal compartment as it passed over the radial styloid of the left wrist. The incision was made through the skin to the subcutaneous tissues using a #15 blade. Careful dissection was made down to the level of the 1st dorsal compartment using tenotomy scissors, with care being taken to protect the nearby branches of the superficial radial nerve. Once the 1st dorsal compartment was exposed, A longitudinal incision was made in the 1st dorsal compartment 1st using a #15 blade, then using tenotomy scissors under direct visualization. The 1st dorsal compartment was noted to be thickened. The EPB tendon had previously been noted to have a significant hourglass deformity. This appears to be normalizing. There was significant scar formation involving the abductor pollicis longus tendon. This is the most likely source of her persistent symptoms. Then performed a tenosynovectomy of the abductor pollicis longus tendon excising the scar tissue and scarred tenosynovium from about the abductor pollicis longus tendon. The tendon itself appeared to be in good condition once this tissue was removed. I placed the scar tissue on the back table to be sent for histopathology. Following our release and tenosynovectomy, we saw smooth gliding abductor pollicis longus and extensor pollicis brevis tendons. Once satisfied with our 1st dorsal compartment release the wound was copiously irrigated with normal saline and hemostasis was obtained with a brief period of local pressure. The subcutaneous layer was closed with some 4-0 Vicryl suture, and the skin edges were reapproximated with some 5.0 nylon suture material. A sterile dressing was applied. The patient appears to have tolerated the procedure well and with no complications. All digits were well vascularized at the conclusion of the case.
[2022-08-01 11:01] VITALS: BMI 27.5
[2022-08-01 11:02] VITALS: BP 146/85; PULSE 67; RESP 16; TEMP 36.7; O2SAT 99
[2022-08-01 12:52] VITALS: BP 132/80; PULSE 70; RESP 16; O2SAT 99
--- NOTE | 2022-08-01 13:56 | MHC.SHP ---
Pre-Procedural Eval Section A Date of Service: 08/01/22 The patient is an INPATIENT: No Changes since office visit: No Cold of Flu in the past 2 weeks, No New Medical Problems, No Changes in Medication and No Patient answered all questions The History & Physical has been completed within 30 days and I have reviewed it.: Yes Section B Chief Complaint: Radial styloid tenosynovitis [de Quervain] Allergies: Allergies Allergy/AdvReac Type Severity Reaction Status Date / Time No Known Allergies Allergy Verified 07/06/22 10:15 [No Known Allergies*] Plan I have reviewed the history and physical and performed a pertinent physical examination on my patient. No changes have occurred unless specified. Time Spent With Patient Time: Total time managing care of this patient today ____ minutes.
== END 2022-08-01 13:57 | disposition home or self-care (01) ==
PROVIDERS: PCP Internal Medicine; Visit Provider Orthopaedic Surgery
PROC: (CPT 25000; principal; 2022-08-01 13:10)
DX: M65.4 Radial styloid tenosynovitis [de Quervain] (principal); M67.844 Other specified disorders of tendon, left hand
CPT/HCPCS: 26145; 25000; 88304; J0171

== ENCOUNTER → 2022-08-03 08:40 | Outpatient (BNVA) | payer OTHER, SELFPAY | PROVIDERS: PCP Internal Medicine; Visit Provider Nurse Practitioner Family | DX: K57.90 Diverticulosis of intestine, part unspecified, without perforation or abscess without bleeding (principal); K59.01 Slow transit constipation; Z98.890 Other specified postprocedural states | CPT/HCPCS: 99212 ==

== ENCOUNTER → 2022-08-16 09:10 | Outpatient (BNVA) | payer OTHER, SELFPAY | PROVIDERS: PCP Internal Medicine; Visit Provider Orthopaedic Surgery | DX: Z47.89 Encounter for other orthopedic aftercare (principal) | CPT/HCPCS: 99212 ==

== ENCOUNTER → 2022-08-24 09:14 | Outpatient (BNVA) | payer OTHER, SELFPAY | PROVIDERS: PCP Internal Medicine; Visit Provider Obstetrics & Gynecology ==

== ENCOUNTER → 2022-09-28 09:27 | Outpatient (BNVA) | payer OTHER, SELFPAY | PROVIDERS: Visit Provider Orthopaedic Surgery ==

== ENCOUNTER 2023-06-13 16:34 | Outpatient (AMB) | payer BC, SELFPAY ==
[2023-06-13 16:49] VITALS: BP 120/80; BMI 26.4
--- NOTE | 2023-06-13 16:49 | A.OFFPC_ITS ---
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 Accompanied by: Spouse Allergies No Known Allergies [No Known Allergies*] Allergy (Verified 06/13/23 17:16) Medication List - Last Reconciled 06/13/23 by Di Irwin MD No Known Home Meds Tobacco use date assessed: 06/13/23 Dental Screening Dental Screen Date: 06/13/23 Did you have a dental visit in the last 12 months?: No Did you have a dental problem in the last 6 months where you did not have access to dental care?: No Was dental information given to patient?: Patient has dentist HPI HPI Comments History of Present Illness Details This is a 48-year-old female that comes today accompanied by complaining of bilateral hand paresthesia that has been present for over a year. Use was brace with no significant relieved. Had tenosynovitis repair last year and left hand improved but not right hand. This is aggravated by activity. He also complains of left knee pain that bothers her by changing from sitting to standing position. [facility] Medical History (Updated 06/14/23 @ 05:50 by Di Irwin MD) Diverticulosis History of COVID-19 Hx of iron deficiency anemia ASCUS with positive high risk HPV Surgical History Hx of colonoscopy H/O abdominal hysterectomy History of hysteroscopy History of endometrial ablation H/O surgical removal of keloid Hx of tubal ligation H/O hand surgery Family History Mother History of breast cancer Social History Household Members: Spouse Housing: House Are you a primary childcare center administrator to a significant other at home: No Do you presently have visiting nurse or other home services: No Alcohol intake: current Alcohol intake frequency: holidays/special occasions only Patient Tobacco Use Status: Never used Tobacco e-Cigarette/Vaping Use: Never Used Second Hand Smoke Exposure: No Substance Use Type: Marijuana service: No Current occupational status: employed 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 1. Little interest or pleasure in doing things: not at all 2. Feeling down, depressed, or hopeless: not at all 3. Trouble falling or staying asleep, or sleeping too much: not at all 4. Feeling tired or having little energy: not at all 5. Poor appetite or overeating: not at all 6. Feeling bad about yourself - or that you are a failure or have let yourself or your family down: not at all 7. Trouble concentrating on things, such as reading the newspaper or watching television: not at all 8. Moving or speaking so slowly that other people could have noticed. Or the opposite - being so fidgety or restless that you have been moving around a lot more than usual: not at all 9. Thoughts that you would be better off or of hurting yourself in some way: not at all Total score: 0 Depression Screening Interpretation: Negative Depression Screening Done: Yes 52469 - PHQ-9 Billing: Yes Source: Developed by Drs. Ghulam Orozco, Christina Bentley, Jameson Braun and colleagues, with an educational danish from [employer]. Thrive Questionnaire Date Thrive assessed: 06/13/23 I am a: Patient What is your living situation today?: I have a steady place to live Within the past 12 months, did the food you bought not last and you didn't have the money to get more?: Never true Within the past 12 months, did you worry whether your food would run out before you got money to buy more?: Never true Do you have trouble paying for medicines?: No Do you have trouble getting transportation to medical appointments?: No Do you have trouble paying your heating and electricity bill?: No Do you have trouble taking care of your child, family member or friend?: No Do you have trouble with day-to-day activities such as bathing, preparing meals, shopping, managing finances, etc.?: No Are you currently unemployed and looking for a job?: No Are you interested in more education?: No Please select the resources that you would like help with: None Currently or been in a relationship where the following occur: no concerns reported THRIVE Score: 0 AUDIT C Alcohol Use Questionnaire (AUDIT-C) 1. How often do you have a drink containing alcohol?: Monthly or less 2. How many drinks containing alcohol do you have on a typical day when you are drinking?: 1 or 2 3. How often do you have six or more drinks on one occasion?: Never Total Score: 1 Score Reviewed/Action Taken: No BRADFORD-7 AMB Questionnaire BRADFORD-7 Date BRADFORD - 7 assessed: 06/13/23 Feeling nervous, anxious, or on edge: 0 = Not at all Not being able to stop or control worryin = Not at all Worrying too much about different things: 0 = Not at all Trouble relaxin = Not at all Being so restless that it is hard to sit still: 0 = Not at all Becoming easily annoyed or irritable: 0 = Not at all Feeling afraid as if something awful might happen: 0 = Not at all Total BRADFORD-7 score (0-4 normal; 5-9 mild; 10-14 moderate; 15-21 severe): 0 Source: Developed by Drs. Ghulam Orozco, Christina Bentley, Jameson Braun and colleagues, with an educational danish from [employer]. BRADFORD-7 Assessment Billing BRADFORD-7 Assessment Tool: BRADFORD-7 Assessment 90878 Review of Systems Const All systems reviewed & are unremarkable except as noted in HPI and below Eyes Reports no additional complaints, Denies change in vision and Denies other visual disturbances Card Denies chest pain at rest, Denies chest pain with activity, Denies edema, Denies irregular heart rhythm, Denies claudication, Denies dyspnea, Denies dyspnea on exertion, Denies orthopnea, Denies paroxysmal nocturnal dyspnea and Denies slow heart rate Resp Denies cough, Denies dyspnea and Denies dyspnea on exertion GI Denies abdominal pain, Denies change in bowel habits, Denies excessive flatus, Denies nausea and Denies vomiting Denies urinary incontinence, Denies urinary hesitancy and Denies urinary urgency Musc Denies abnormal gait, Denies atrophy, Denies deformity and Denies limited range of motion Skin/Breast Denies bleeding lesions, Denies changing lesions and Denies rash Neuro Denies abnormal gait and Denies lack of coordination Physical exam (Primary Care) Vital Signs: Last Vital Signs BP 120/80 06/13/23 16:49 BMI result Body Mass Index 26.4 Tobacco/Smoking Status: Tobacco use Status Tobacco use date assessed 06/13/23 06/13/23 16:54 Patient Tobacco Use Status Never used Tobacco 06/13/23 16:54 e-Cigarette/Vaping Use Never Used 06/13/23 16:54 PHQ-9: PHQ-9 Score PHQ-9: Total score 0 06/13/23 17:27 Depression Screening Interpretation: Negative Thrive Assessment: Date of Thrive Assessment Date Thrive assessed 06/13/23 06/13/23 16:54 Currently or been in a relationship where the following occur: no concerns reported Resp Effort & Inspection: normal respiratory effort Auscultation: clear to auscultation bilaterally Cardio Jugular venous distension: no JVD Rate: regular rate Rhythm: regular rhythm Heart sounds: S1 normal heart sound present and S2 normal heart sound present Extrem General: Yes full ROM Assessment and Plan Assessment & Plan (1) Hand paresthesia: Code(s): R20.2 - Paresthesia of skin Plan: Nerve conduction study ordered (2) Left knee pain: Code(s): M25.562 - Pain in left knee Qualifiers: Chronicity: acute Qualified Code(s): M25.562 - Pain in left knee Plan: X-ray ordered Orders: Orders NE nerve conduction velocity 06/13/23 R20.2 - Paresthesia of skin XR knee LT 2V 06/13/23 M25.562 - Pain in left knee OT Evaluation and Treatment 06/13/23 R20.2 - Paresthesia of skin Coding Level of Care Code Est Pt Level 3 (07397) Diagnoses Hand paresthesia R20.2 Acute pain of left knee M25.562 Chronicity: acute Additional Codes BRADFORD-7 Assessment Billing - BRADFORD-7 Assessment Tool: BRADFORD-7 Assessment 71246 ([id number]) Time Spent (min) 19
== END 2023-06-13 17:26 | disposition home or self-care (01) ==
PROVIDERS: PCP Internal Medicine; Visit Provider Internal Medicine
DX: R20.2 Paresthesia of skin (principal); M25.562 Pain in left knee
CPT/HCPCS: 99213

== ENCOUNTER 2023-07-06 15:20 | Outpatient (REF) | payer BC, SELFPAY ==
--- NOTE | 2023-07-06 15:24 | EMG_ITS ---
Chief complaint: On and off hand numbness, usually at night and repetitive movements. Right worse than left. S/P left repeat 1st dorsal compartment release, DOS: 08/01/22. Her initial surgery was on 03/10/22. Reason for referral: Evaluate for Carpal Tunnel Syndrome Referred by: Dr. Di Irwin Procedure done: Bilateral upper extremities NCS/EMG Precautions and/or limitations: None The limb temperature was monitored continuously and remained between 32-36 degrees C during the performance of the NCS. Nerve Conduction Studies Anti Sensory Summary Table ?Stim Site NR Onset (ms) Norm Onset (ms) Peak (ms) Norm Peak (ms) O-P Amp (?V) Norm O-P Amp Site1 Site2 Delta-0 (ms) Dist (cm) Charlie (m/s) Norm Charlie (m/s) Left Median Anti Sensory (2nd Digit) Wrist ? 2.3 3.2 <3.6 137.7 >10 Wrist 2nd Digit 2.3 14.0 61 Right Median Anti Sensory (2nd Digit) Wrist ? 3.6 4.5 <3.6 40.6 >10 Wrist 2nd Digit 3.6 14.0 39 Right Radial Anti Sensory (Thumb) Forearm ? 0.4 0.8 <3.1 270.3 Forearm Thumb 0.4 0.0 Left Ulnar Anti Sensory (5th Digit) Wrist ? 2.1 2.8 <3.7 68.0 >15.0 Wrist 5th Digit 2.1 14.0 67 Right Ulnar Anti Sensory (5th Digit) Wrist ? 2.5 3.0 <3.7 16.6 >15.0 Wrist 5th Digit 2.5 14.0 56 Motor Summary Table ?Stim Site NR Onset (ms) Norm Onset (ms) O-P Amp (mV) Norm O-P Amp iAmp (mV) Amp (1st) (%) Site1 Site2 Delta-0 (ms) Dist (cm) Charlie (m/s) Norm Charlie (m/s) Left Median Motor (Abd Poll Brev) Wrist ? 3.4 <3.9 11.9 >4.5 13.9 100.0 Elbow Wrist 3.7 25.0 68 >45 Elbow ? 7.1 10.9 12.6 91.6 Right Median Motor (Abd Poll Brev) Wrist ? 4.6 <3.9 7.7 >4.5 9.2 100.0 Elbow Wrist 4.2 25.0 60 >45 Elbow ? 8.8 8.4 10.3 109.1 Left Ulnar Motor (Abd Dig Minimi) Wrist ? 2.8 <3.0 8.0 >5 11.1 100.0 B Elbow Wrist 3.1 21.0 68 >45 B Elbow ? 5.9 8.0 11.3 100.0 A Elbow B Elbow 1.2 10.0 83 >45 A Elbow ? 7.1 8.0 11.1 100.0 Right Ulnar Motor (Abd Dig Minimi) Wrist ? 3.0 <3.0 10.6 >5 12.1 100.0 B Elbow Wrist 3.3 21.5 65 >45 B Elbow ? 6.3 11.2 12.9 105.7 A Elbow B Elbow 1.1 10.0 91 >45 A Elbow ? 7.4 10.8 12.8 101.9 Comparison Summary Table ?Stim Site NR Peak (ms) Norm Peak (ms) P-T Amp (?V) Site1 Site2 Delta-P (ms) Norm Delta (ms) Left Median/Radial Dig I Comparison (Digit 1 - 10cm) Median ? 2.7 <2.9 87.7 Median Radial 0.1 Radial ? 2.8 <2.8 59.8 EMG ?Side Muscle Nerve Root Ins Act Fibs Psw Amp Dur Poly Recrt Int Pat Comment Right 1stDorInt Ulnar C8-T1 Nml Nml Nml Nml Nml 0 Nml Complete Right FlexCarRad Median C6-7 Nml Nml Nml Nml Nml 0 Nml Complete Right Biceps Musculocut C5-6 Nml Nml Nml Nml Nml 0 Nml Complete Right Triceps Radial C6-7-8 Nml Nml Nml Nml Nml 0 Nml Complete Right Deltoid Axillary C5-6 Nml Nml Nml Nml Nml 0 Nml Complete Left 1stDorInt Ulnar C8-T1 Nml Nml Nml Nml Nml 0 Nml Complete Left FlexCarRad Median C6-7 Nml Nml Nml Nml Nml 0 Nml Complete Left Biceps Musculocut C5-6 Nml Nml Nml Nml Nml 0 Nml Complete Left Triceps Radial C6-7-8 Nml Nml Nml Nml Nml 0 Nml Complete Left Deltoid Axillary C5-6 Nml Nml Nml Nml Nml 0 Nml Complete FINDINGS: Right median motor nerve showed prolonged distal latency, normal amplitude and normal conduction velocity. Right median sensory nerve showed prolonged peak latency. All other nerves tested were within normal. Concentric needle EMG was performed in selected muscles of the bilateral upper extremities. Study did not reveal signs of electric abnormalities as shown in the table below. IMPRESSION: 1. This is an abnormal study. 2. There is electrodiagnostic evidence for right moderate-severe median neuropathy at the wrist, consistent with carpal tunnel syndrome. 3. There is no electrodiagnostic evidence for ulnar neuropathy, brachial plexopathy, or cervical radiculopathy. 4. There is no electrodiagnostic evidence for median neuropathy on left. Thank you for your kind referral. Shawna Griffin MD, WAYNE Board Certified, [place] Board of [employer] Medicine and Rehabilitation (ABPMR) Board Certified, [place] Board of Electrodiagnostic Medicine (ABEM) CODIN 07695 x 2 MTDD
== END 2023-07-06 15:21 | disposition home or self-care (01) ==
LOC: HO.NEURO 15:20
PROVIDERS: PCP Internal Medicine; Visit Provider Internal Medicine
DX: R20.2 Paresthesia of skin (principal)
CPT/HCPCS: 95886; 95911

== ENCOUNTER → 2023-07-06 15:24 | Outpatient (BNV) | payer BC, SELFPAY | PROVIDERS: PCP Internal Medicine; Visit Provider Physical Medicine & Rehabilitation | DX: G56.01 Carpal tunnel syndrome, right upper limb (principal); M79.642 Pain in left hand | CPT/HCPCS: 95886; 95911 ==

== ENCOUNTER 2023-08-24 15:30 | Outpatient (RCR) | payer OTHER, BC, SELFPAY ==
--- NOTE | 2023-08-01 16:30 | MHC.OT.EP ---
[address] [phone] Occupational Therapy Plan of Care Patient Name: Imelda Aquino Date of Evaluation: 08/01/23 Diagnosis: Hand paresthesia Pain Location: 5-8/10 right dorsal wrist . left radial wrist ache Pain Score: 8 Pain Scale Used: Numeric (0 - 10) Aggravating Factors: Gripping and wrist ROM on right . Left with pinches Alleviating Factors: Assessment: Imelda is a 48 yo female with worsening right hand pain and numbness since returning to work this past April s/p Bilateral Dequervains release Recent NCS shows mod -severe median nerve compression at the carpal wrist She is working full duty with pain. She demonstrates impairiments in pain, right wrist and hand ROM and strength due to pain. Light touch sensation is impaired. Hand dexterity is WFL Imelda will benefit from OT to address CTS symptoms. Frequency and Duration: The patient will be seen 2x 4 wks Short Term Goals: Indep with use of wrist orthosis and thermal modalities for CTS sx Demo indep with HEP Demo awareness of protection tech for CTS Report some improvement in sleep with wrist orthosis Shelter Goals: Wrist ext to 65 deg Wrist flex to 60 deg Report mild difficulty with daily activites with modifications as needed Dec complaint of right and and wrist pain to < 5 at worst Indep in self management of CTS Treatment Plan: Therapeutic Exercise Therapeutic Activity Home Exercise Program Splinting Patient Education ADL Training Ultrasound Iontophoresis Fluidotherapy Cold Packs Soft Tissue Mobilization Kinesiotaping Electronically Signed By: Danette Rodriguez OT CHT CLT Please Sign and return to therapist. Thank you once again for your referral.
== END 2023-09-14 10:51 | disposition home or self-care (01) ==
LOC: HO.OT 15:30
PROVIDERS: PCP Internal Medicine; Visit Provider Internal Medicine
DX: R20.2 Paresthesia of skin (principal)
CPT/HCPCS: 29125; 97033; 97035; 97110; 97140; 97166; 97760

== ENCOUNTER 2023-08-24 16:07 | Outpatient (REF) | payer BC, SELFPAY ==
--- NOTE | ~2023-08-24 | MM_ITS ---
EXAMINATION: MM SCREENING DIGITAL BREAST TOMOSYNTHESIS, BILATERAL CLINICAL INFORMATION: Screening. Asymptomatic. COMPARISON: Mammography: This study is compared with prior exams dating back to 2019. TECHNIQUE: Digital breast tomosynthesis is performed in both the craniocaudal and mediolateral oblique views along with computer-aided detection (CAD). Synthesized 2D images are generated from the tomosynthesis. FINDINGS: There are scattered areas of fibroglandular density (ACR BI-RADS breast composition Category b). There are no significant masses, abnormal calcifications, or other abnormalities. There is a biopsy tissue marker in the lower inner quadrant of the left breast associated with a subcentimeter, benign, oval focal asymmetry. MM/MM tomosynthesis screening BI IMPRESSION: No mammographic evidence of malignancy. ASSESSMENT: BI-RADS BI-RADS 2 - Benign Findings RECOMMENDATION: Routine annual mammography screening. 1 year F/U This examination should not preclude the clinical evaluation of a suspicious palpable abnormality. This patient's information was entered into a reminder system with a target due date for their next mammogram.
== END 2023-08-24 16:08 | disposition home or self-care (01) ==
LOC: HO.MAMMO 16:07
PROVIDERS: PCP Internal Medicine; Visit Provider Internal Medicine
DX: Z12.31 Encounter for screening mammogram for malignant neoplasm of breast (principal)
CPT/HCPCS: 77063; 77067

== ENCOUNTER → 2023-08-24 16:30 | Outpatient (BNV) | payer BC, SELFPAY | PROVIDERS: PCP Internal Medicine; Visit Provider Radiology Diagnostic Radiology | DX: Z12.31 Encounter for screening mammogram for malignant neoplasm of breast (principal) | CPT/HCPCS: 77063; 77067 ==

== ENCOUNTER 2023-09-13 14:27 | Outpatient (AMB) | payer BC, SELFPAY ==
--- NOTE | 2023-09-13 15:35 | A.OFFVIS_ITS ---
Vital Signs 09/13/23 15:36 Height 5 ft 4 in Weight 150 lb BMI 25.7 Handedness Right Intake Visit Reasons: Newprob-Carpal tunnel syndrome, right upper limb Intake Note: Imelda 48 yr old right hand dominant female presents today for a new problem visit for her right Carpal tunnel syndrome. States she has numbness and tingling that has been worsening for about a year for the last. Symptoms come and goes during the day but worsen in the night time causing her to wake up and shake her hand off. 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 She has tried a brace, injection, and OT but has found no relief. EMG done on 07/06/23. Patient would like to discuss surgery if it is needed. Hx of left hand repeat dequervain from 08/01/2022 and right 1st dorsal compartment release 01/13/22. Accompanied by: Spouse Allergies No Known Allergies [No Known Allergies*] Allergy (Verified 09/13/23 15:37) HPI HPI Newprob-Carpal tunnel syndrome, right upper limb: Details: Imelda is a 48 year old right hand dominant woman who presents for a NCS review and her right hand numbness. She complains of numbness in the median nerve distribution. Symptoms are so mewhat intermittent certainly occur every day and she does have some persistent tingling in her fingers. She says this has been present for ~1 year now. She also complains of pain in the dorsal aspect of her hand & forearm She says she has found limited relief from bracing, OT, and injections. She also complains of ankle pain, and says she twisted her ankle at work a few weeks ago. She would like to be seen for this. 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 She has a hx of bilateral 1st dorsal compartment releases.left 03/10/22 & left repeat on 08/01/22. Right 1st dorsal compartment release was done on 01/13/22. [facility] Medical History ASCUS with positive high risk HPV Diverticulosis History of COVID-19 Hx of iron deficiency anemia Surgical History Hx of colonoscopy H/O abdominal hysterectomy History of hysteroscopy History of endometrial ablation H/O surgical removal of keloid Hx of tubal ligation H/O hand surgery Family History Mother History of breast cancer Social History Household Members: Spouse Housing: House Are you a primary healthcare economics manager to a significant other at home: No Do you presently have visiting nurse or other home services: No Alcohol intake: current Alcohol intake frequency: holidays/special occasions only Patient Tobacco Use Status: Never used Tobacco e-Cigarette/Vaping Use: Never Used Second Hand Smoke Exposure: No Substance Use Type: Marijuana service: No Current occupational status: employed 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 Current occupational exposures/hazards: No Sexual orientation: Straight/Heterosexual Cognitive needs: No Hearing needs: No Vision needs: No Female Reproductive History Menstrual Age of Menarche: 10 Review of Systems Const All systems reviewed & are unremarkable except as noted in HPI and below Physical Exam Vital Signs: BMI result Body Mass Index 25.7 Const General: no acute distress and alert Orientation/consciousness: patient oriented x3 Neuro General: patient oriented x3 Extrem Other: Evaluation of Right Upper Extremity: The patient is alert, oriented, and in no acute distress Neuro: Some persistent tingling & not quite normal sensation in the median nerve distribution today in clinic. Normal sensation in ulnar nerve distribution Normal sensation to the small finger. No thenar or intrinsic wasting Good APB muscle belly firing and good finger cross Vascular: Cap refill brisk ROM: She can make a fist and extend all her digits Tender just distal to the lateral epicondyle Pain in the dorsal aspect of the right hand and extensor side of the forearm When she flexes & extends her fingers we can see a small bump in line with the index finger extensor tendons This may perhaps be a small ganglion cyst, and measures ~6mm in diameter Nerve Conduction Study: IMPRESSION: 1. This is an abnormal study. 2. There is electrodiagnostic evidence for right moderate-severe median neuropathy at the wrist, consistent with carpal tunnel syndrome. 3. There is no electrodiagnostic evidence for ulnar neuropathy, brachial pl exopathy, or cervical radiculopathy. 4. There is no electrodiagnostic evidence for median neuropathy on left. Shawna Griffin MD, WAYNE 07/06/23 Psych Appearance: grossly normal Affect: normal affect Attitude: cooperative Assessment & Plan Assessment & Plan (1) Carpal tunnel syndrome of right wrist: Code(s): G56.01 - Carpal tunnel syndrome, right upper limb Category: Medical (2) Right lateral epicondylitis: Code(s): M77.11 - Lateral epicondylitis, right elbow Category: Medical Plan Assessment & Plan: 1. Right carpal tunnel syndrome, moderate-severe Symptoms intermittent, but daily, worse at night Some persistent tingling in the median nerve distribution. I educated her about this condition I discussed operative and non-operative treatment options The patient would like to proceed with surgery The risks and benefits of operative treatment were discussed with the patient and the patient wishes to proceed with surgery. These risks include, but are not limited to risk of damage to blood vessels, nerves, tendons, infection, recurrence, incomplete relief of preoperative symptoms, persistent pain, possible need for further surgery and the risks associated with regional blocks and anesthesia. The plan is to take the patient to the operating room sometime in the next few weeks for the following procedures: 1. Right carpal tunnel release, under local All of the preoperative paperwork including the consent was reviewed today. All the patient's questions were answered. The patient understands that they will be contacted by our nursing scheduler soon to schedule this procedure She denies Diabetes, blood thinners, asthma, heart, lung, kidney issues 2. Right lateral epicondylitis This is another new condition. I educated her about this condition I recommend activity modification & therapy She will work on modifying her activities and limiting any activities which cause her pain, including lifting activities She will continue with therapy and at-home exercises 3. Left De Quervain's Tenosynovitis, S/P repeat release DOS: 08/01/22, 03/10/22 Negative Denisha test 4. Right De Quervain's Tenosynovitis, S/P release Date of Injection: 09/17/21 DOS: 01/13/22 Negative Denisha test, symptoms resolved Scribed for Susy Murphy MD by Bakari Arndt, medical administrative assistant, on 09/13/23 at 3:50 PM, EST. Scribe Plan - Not visible on output: Scribed for Susy Murphy MD by Bakari Arndt, medical administrative assistant, on [ ] at [ ], EST. Coding Level of Care Code Est Pt Level 4 (19803) Diagnoses Carpal tunnel syndrome of right wrist G56.01 Right lateral epicondylitis M77.11
[2023-09-13 15:36] VITALS: BMI 25.7
== END 2023-09-13 16:01 | disposition home or self-care (01) ==
LOC: HO.HOS 14:27
PROVIDERS: PCP Internal Medicine; Visit Provider Orthopaedic Surgery
DX: G56.01 Carpal tunnel syndrome, right upper limb (principal); M77.11 Lateral epicondylitis, right elbow
CPT/HCPCS: 99214

== ENCOUNTER → 2023-09-13 14:27 | Outpatient (BNVA) | payer BC, SELFPAY | PROVIDERS: PCP Internal Medicine; Visit Provider Orthopaedic Surgery ==

== ENCOUNTER 2023-11-09 14:25 | Outpatient (AMB) | payer BC, SELFPAY ==
[2023-11-09 14:27] VITALS: BP 118/70; BMI 27.5
--- NOTE | 2023-11-09 14:27 | MHC.PC.OV ---
Vital Signs 11/09/23 14:27 Height 5 ft 4 in Weight 160 lb BMI 27.5 BP 118/70 Blood Pressure Location Lt brachial Position Sitting Intake Visit Reasons: pe Intake Note: Patient here for a physical exam Milk Vendor Required: No Accompanied by: Spouse Allergies No Known Allergies [No Known Allergies*] Allergy (Verified 11/09/23 14:38) Medication List - Last Reconciled 11/09/23 by Di Irwin MD No Known Home Meds Tobacco use date assessed: 06/13/23 Dental Screening Dental Screen Date: 11/09/23 Did you have a dental visit in the last 12 months?: No Did you have a dental problem in the last 6 months where you did not have access to dental care?: No Was dental information given to patient?: Patient has dentist HPI HPI Comments History of Present Illness Details This is a 48-year-old female that comes for her physical exam. Mammogram done 2023. Last Pap smear was 2020 and had hysterectomy that year therefore no need for more Pap smears. Hysterectomy was for benign reasons. Colonoscopy done 2022 was normal. Denies any chest pain or shortness on breath. Accompanied by . COUNTS INCLUDE 234 BEDS AT THE [facility] Medical History (Updated 11/09/23 @ 14:46 by Di Irwin MD) Diverticulosis History of COVID-19 Hx of iron deficiency anemia ASCUS with positive high risk HPV Surgical History Hx of colonoscopy H/O abdominal hysterectomy History of hysteroscopy History of endometrial ablation H/O surgical removal of keloid Hx of tubal ligation H/O hand surgery Family History Mother History of breast cancer Father No problems noted. 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 Ghulam Orozco, Christina Bentley, Jameson Braun and colleagues, with an educational danish from [employer]. Review of Systems Const All systems reviewed & are unremarkable except as noted in HPI and below Card Denies chest pain at rest, Denies chest pain with activity, Denies edema, Denies irregular heart rhythm, Denies claudication, Denies dyspnea, Denies dyspnea on exertion, Denies orthopnea, Denies paroxysmal nocturnal dyspnea and Denies slow heart rate Resp Denies cough, Denies dyspnea and Denies dyspnea on exertion GI Denies abdominal pain, Denies change in bowel habits, Denies excessive flatus, Denies nausea and Denies vomiting Denies urinary incontinence, Denies urinary hesitancy and Denies urinary urgency Musc Denies abnormal gait, Denies atrophy, Denies deformity and Denies limited range of motion Skin/Breast Denies bleeding lesions, Denies changing lesions and Denies rash Neuro Denies abnormal gait and Denies lack of coordination Physical exam (Primary Care) Vital Signs: Last Vital Signs BP 118/70 11/09/23 14:27 BMI result Body Mass Index 27.5 Tobacco/Smoking Status: Tobacco use Status Tobacco use date assessed 06/13/23 11/09/23 14:31 Patient Tobacco Use Status Never used Tobacco 11/09/23 14:31 e-Cigarette/Vaping Use Never Used 11/09/23 14:31 Thrive Assessment: Date of Thrive Assessment Date Thrive assessed 06/13/23 11/09/23 14:31 HENMT Head: Yes normal to inspection, Yes normocephalic and Yes atraumatic Ears: external ears normal Eyes General: appearance normal, both eyes and all related structures Eyelids: Yes eyelids normal Conjunctivae: conjunctivae normal Neck Neck: Yes normal visual inspection and Yes supple Resp Effort & Inspection: normal respiratory effort Auscultation: clear to auscultation bilaterally Cardio Jugular venous distension: no JVD Rate: regular rate Rhythm: regular rhythm Heart sounds: S1 normal heart sound present and S2 normal heart sound present GI Inspection: Yes normal to inspection Palpation (GI): Soft to palpation and nontender Auscultation: normal bowel sounds Skin General skin exam: no rashes or lesions noted Neuro General: no focal motor deficits Extrem General: Yes full ROM Psych Appearance: grossly normal Assessment and Plan Assessment & Plan (1) Physical exam: Code(s): Z00.00 - Encounter for general adult medical examination without abnormal findings Plan: Repeat in a year. Orders: Orders Comprehensive Roosevelt. Panel Fast Today Z00.00 - Encounter for general adult medical examination without abnormal findings Lipid Panel Today Z00.00 - Encounter for general adult medical examination without abnormal findings Coding Level of Care Code Est Pt Prev Care 40-64y(34528) Diagnoses Physical exam Z00.00 Time Spent (min) 31
== END 2023-11-09 14:48 | disposition home or self-care (01) ==
PROVIDERS: PCP Internal Medicine; Visit Provider Internal Medicine
DX: Z00.00 Encounter for general adult medical examination without abnormal findings (principal)
CPT/HCPCS: 99396

== ENCOUNTER 2023-11-20 12:53 | Day surgery (SDC) | payer BC, SELFPAY ==
[2023-11-20 13:32] VITALS: BMI 27.5
[2023-11-20 13:35] VITALS: BP 136/77; PULSE 69; RESP 16; TEMP 37.1; O2SAT 97
--- NOTE | 2023-11-20 14:13 | MHC.SHP ---
Pre-Procedural Eval Section A - 24 Hr Update-Section A only Date of Service: 11/20/23 The patient is an INPATIENT: No Changes since office visit: No Cold of Flu in the past 2 weeks, No New Medical Problems, No Changes in Medication and No Patient answered all questions The patient has been examined within 24 hours of the surgical procedure. The History & Physical has been completed within 30 days and I have reviewed it.: Yes Section B - Complete if H&P > 30 days Chief Complaint: Carpal tunnel syndrome, right upper limb Allergies: Allergies Allergy/AdvReac Type Severity Reaction Status Date / Time No Known Allergies Allergy Verified 11/20/23 13:31 [No Known Allergies*] Exam Exam Comment: Right carpal tunnel syndrome Plan Diagnosis/Plan: Unchanged I have reviewed the history and physical and performed a pertinent physical examination on my patient. No changes have occurred unless specified. Time Spent With Patient Time: Total time managing care of this patient today ____ minutes.
--- NOTE | 2023-11-20 14:14 | W.PM.OPN ---
Operative Note Operative Note Date of Service: 11/20/23 Narrative: Preop diagnosis: 1. Right Carpal tunnel syndrome Postop diagnosis: same Procedure: 1. Right Carpal tunnel release Surgeon: Susy Murphy MD [employer] Sawyer: Anesthesia: local block using 1% lidocaine with epinephrine Findings: Thickened transverse carpal ligament. EBL: Less than 5 mL Specimens: None Complications: None Disposition: Brought to recovery room in stable condition Plan: Follow-up for 10-14 days for wound check and suture removal A patient who is 48 years old, with right carpal tunnel syndrome that has been unresponsive to nonoperative management. The risks and benefits of operative treatment including but not limited to risk of damage to blood vessels, nerves, tendons, infection, persistent pain, persistent symptoms, or possible need for additional surgery were discussed with the patient and the patient wishes to proceed with surgery. Procedure: Once consent was obtained a local block was performed using a combination of 1% lidocaine with epinephrine. The patient was then brought back to the operating suite and placed on the operative table in supine position. The right upper extremity was prepped and draped in a standard surgical fashion. Once assured that we had a good block, a 2.0 cm longitudinal incision was made centered over the carpal tunnel. The incision was made through the skin to the subcutaneous tissues using a #15 blade. Dissection was made down to the level of the transverse carpal ligament with care being taken to protect the palmar cutaneous nerve. Once the transverse carpal ligament was clearly visualized, a longitudinal incision was made in the transverse carpal ligament 1st using a #15 blade, then using tenotomy scissors under direct visualization. Care was taken to look for and protect the motor branch of the median nerve when seen in this area. Once satisfied with our carpal tunnel release the wound was copiously irrigated with normal saline and hemostasis was obtained with a brief period of local pressure. The skin edges were reapproximated with some 5.0 nylon suture material and a sterile dressing was applied. The patient appears to have tolerated the procedure well and with no complications. All digits were well vascularized at the conclusion of the case.
[2023-11-20 16:13] VITALS: BP 144/81; PULSE 61; RESP 20; TEMP 36.4; O2SAT 100
== END 2023-11-20 16:26 | disposition home or self-care (01) ==
PROVIDERS: PCP Internal Medicine; Visit Provider Orthopaedic Surgery
PROC: (CPT 64721; principal; 2023-11-20 16:20)
DX: G56.01 Carpal tunnel syndrome, right upper limb (principal); M77.11 Lateral epicondylitis, right elbow; R20.0 Anesthesia of skin; R20.2 Paresthesia of skin; Z98.890 Other specified postprocedural states
CPT/HCPCS: 64721; J0171

== ENCOUNTER → 2023-11-20 12:53 | Outpatient (BNV) | payer BC, SELFPAY | PROVIDERS: PCP Internal Medicine; Visit Provider Orthopaedic Surgery | DX: G56.01 Carpal tunnel syndrome, right upper limb (principal) | CPT/HCPCS: 64721 ==

== ENCOUNTER 2023-12-05 12:53 | Outpatient (AMB) | payer BC, SELFPAY ==
--- NOTE | 2023-12-05 12:58 | A.OFFVIS_ITS ---
Vital Signs 12/05/23 13:04 Handedness Right Intake Visit Reasons: PO RT CTR 11/20/23 AR Intake Note: Imelda is a 48 year old right hand dominant female who presents today post operatively S/P right Carpal Tunnel Release DOS: 11/20/2023 w/ Dr Murphy. Patient reports she has no more numbness and very little tingling on the lateral aspect of her right pinky. She reports she is having pain on the palm of her right hand and on lateral aspect of left pinky, she says she applies pressure with her left thumb on the center of her palm to alleviate the pain. She expresses that she has been having the feeling on someone putting needles into the incision site. Suture removed and steri strips applied. Allergies No Known Allergies [No Known Allergies*] Allergy (Verified 12/05/23 13:04) HPI HPI PO RT CTR 11/20/23 AR: Details: Patient is a 48-year-old female who presents for postoperative evaluation status post right carpal tunnel release, DOS 11/20/2023. Today, the patient reports that she is feeling very well, and then her numbness and tingling have improved dramatically since DOS. The patient does report that she is still having some pain just radial and ulnar to the incision site, as well as in the palm of the right hand. Patient reports no drainage from the incision site, no erythema, and no other acute complaints or concerns at time. [facility] Medical History Diverticulosis History of COVID-19 Hx of iron deficiency anemia ASCUS with positive high risk HPV Surgical History Hx of colonoscopy H/O abdominal hysterectomy History of hysteroscopy History of endometrial ablation H/O surgical removal of keloid Hx of tubal ligation H/O hand surgery Family History Mother History of breast cancer Father No problems noted. 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 Neuro: Normal sensation of the tips of all digits of the right hand at this time Vascular: Cap refill brisk Pain: Patient reports some tenderness to palpation about the surgery site, primarily focused at the pillars of the carpal tunnel, as well as centrally in the right palm ROM: Patient is able to make a closed fist and extend all digits right hand fully without difficulty Skin: Well-healing incision site over the volar right wrist, no evidence of dehiscence No drainage at this time General: No ecchymosis, erythema, or evidence of infection. Psych: Appears grossly normal Affect normal Attitude cooperative Assessment & Plan Assessment & Plan (1) Carpal tunnel syndrome of right wrist: Code(s): G56.01 - Carpal tunnel syndrome, right upper limb Category: Medical Plan 1. Right carpal tunnel syndrome status post carpal tunnel release DOS 11/20/2023 Patient appears to be recovering well postoperatively Patient is educated about the typical recovery course Patient is educated that the pain she is experiencing is likely pillar pain, that this is a very common side effect of carpal tunnel release, and that this will resolve in the coming days to weeks Due to the patient's line of work involving heavy lifting, and no accommodations with light duty, she will be held out of work for a further 2 weeks, with a return to work date of 12/19/2023 At this time, patient is informed that she does not require acute follow-up with us, due to her good recovery Patient is amenable to this plan Patient will follow-up as needed with any acute concerns Coding Level of Care Code Global (57208) Diagnoses Carpal tunnel syndrome of right wrist G56.01
== END 2023-12-05 13:32 | disposition home or self-care (01) ==
PROVIDERS: PCP Internal Medicine
DX: G56.01 Carpal tunnel syndrome, right upper limb (principal)
CPT/HCPCS: 99024

== ENCOUNTER → 2023-12-05 12:53 | Outpatient (BNVA) | payer BC, SELFPAY | PROVIDERS: PCP Internal Medicine ==

== ENCOUNTER 2024-11-15 15:21 | Outpatient (REF) | payer BC, SELFPAY ==
--- NOTE | ~2024-11-15 | MM_ITS ---
EXAMINATION: MM SCREENING DIGITAL BREAST TOMOSYNTHESIS, BILATERAL CLINICAL INFORMATION: Screening. Asymptomatic. COMPARISON: Mammography: Comparison is made with available priors TECHNIQUE: Digital breast mammography with tomosynthesis is performed in both the craniocaudal and mediolateral oblique views along with computer-aided detection (CAD). FINDINGS: There are scattered areas of fibroglandular density (ACR BI-RADS breast composition Category b). Left marker clip. There are no significant masses, abnormal calcifications, or other abnormalities. MM/MM tomosynthesis screening BI IMPRESSION: No mammographic evidence of malignancy. ASSESSMENT: BI-RADS BI-RADS 2 - Benign Findings RECOMMENDATION: Routine annual mammography screening. 1 year F/U This examination should not preclude the clinical evaluation of a suspicious palpable abnormality. This patient's information was entered into a reminder system with a target due date for their next mammogram. Electronically signed by: Coleen Farmer DO 11/19/2024 01:45 PM EDT
== END 2024-11-15 15:22 | disposition home or self-care (01) ==
LOC: HO.MAMMO 15:21
PROVIDERS: PCP Internal Medicine; Visit Provider Internal Medicine
DX: Z12.31 Encounter for screening mammogram for malignant neoplasm of breast (principal)
CPT/HCPCS: 77063; 77067

== ENCOUNTER → 2024-11-15 16:00 | Outpatient (BNV) | payer BC, SELFPAY | PROVIDERS: PCP Internal Medicine; Visit Provider Internal Medicine | DX: Z12.31 Encounter for screening mammogram for malignant neoplasm of breast (principal) | CPT/HCPCS: 77063; 77067 ==

== ENCOUNTER 2024-12-02 12:28 | Outpatient (AMB) | payer BC, SELFPAY ==
--- NOTE | 2024-12-02 12:31 | MHC.PC.OV ---
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 Required: No Accompanied by: Self / Same As Patient Allergies No Known Allergies (No Known Allergies*) Allergy (Verified 12/02/24 12:44) Medication List - Last Reconciled 12/02/24 by Di Irwin MD amoxicillin 500 mg PO Q8H Tobacco use date assessed: 12/02/24 Dental Screening Dental Screen Date: 12/02/24 Did you have a dental visit in the last 12 months?: No Did you have a dental problem in the last 6 months where you did not have access to dental care?: No Was dental information given to patient?: No HPI HPI Comments History of Present Illness Details The patient is a 49-year-old female presenting with depression and for a review of preventative care measures. The patient reports experiencing symptoms of depression, with a PHQ-9 score of 7, indicating mild depression. She has not been seeing a counselor but expressed interest in medication management for her symptoms. In terms of preventative care, the patient received a Tdap vaccination in 2015, with the next dose due in 2025. She had a mammogram last month, which was reported as normal. A colonoscopy was performed in 2022, and she underwent a Pap smear in 2020, followed by a hysterectomy, which negates the need for further Pap smears. The patient does not smoke but reports consuming alcohol daily, typically one to two drinks if available. - Tdap vaccination completed in 2015, next due in 2025 - Mammogram performed last month, results normal - Colonoscopy completed in 2022 - Pap smear conducted in 2020, followed by hysterectomy, no further Pap smears needed PFSH Medical History (Updated 12/02/24 @ 12:59 by Di Irwin MD) Diverticulosis History of COVID-19 Hx of iron deficiency anemia ASCUS with positive high risk HPV Surgical History Hx of colonoscopy H/O abdominal hysterectomy History of hysteroscopy History of endometrial ablation H/O surgical removal of keloid Hx of tubal ligation H/O hand surgery Family History (Updated 12/02/24 @ 12:48 by Di Irwin MD) Mother History of breast cancer Father No problems noted. 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 1. Little interest or pleasure in doing things: several days 2. Feeling down, depressed, or hopeless: several days 3. Trouble falling or staying asleep, or sleeping too much: more than half the days 4. Feeling tired or having little energy: more than half the days 5. Poor appetite or overeating: not at all 6. Feeling bad about yourself - or that you are a failure or have let yourself or your family down: several days 7. Trouble concentrating on things, such as reading the newspaper or watching television: not at all 8. Moving or speaking so slowly that other people could have noticed. Or the opposite - being so fidgety or restless that you have been moving around a lot more than usual: not at all 9. Thoughts that you would be better off or of hurting yourself in some way: not at all Total score: 7 Depression Screening Interpretation: Positive Depression Screening Follow-up: Existing condition and Follow-up Visit Requested Depression Screening Done: Yes 89315 - PHQ-9 Billing: Yes Source: Developed by Drs. Ghulam Orozco, Christina Bentley, Jameson Braun and colleagues, with an educational danish from [employer]. Thrive Questionnaire Date Thrive assessed: 12/02/24 I am a: Patient What is your living situation today?: I have a place to live, but I am worried about losing it in the future Within the past 12 months, did the food you bought not last and you didn't have the money to get more?: I choose not to answer this question Within the past 12 months, did you worry whether your food would run out before you got money to buy more?: Sometimes True Do you have trouble paying for medicines?: Yes Do you have trouble getting transportation to medical appointments?: No Do you have trouble paying your heating and electricity bill?: Yes Do you have trouble taking care of your child, family member or friend?: No Do you have trouble with day-to-day activities such as bathing, preparing meals, shopping, managing finances, etc.?: No Are you currently unemployed and looking for a job?: No Are you interested in more education?: No Please select the resources that you would like help with: None Currently or been in a relationship where the following occur: I choose not to answer THRIVE Score: 3 AUDIT C Alcohol Use Questionnaire (AUDIT-C) 1. How often do you have a drink containing alcohol?: 2-3 times a week 2. How many drinks containing alcohol do you have on a typical day when you are drinking?: 3 or 4 3. How often do you have six or more drinks on one occasion?: Never Total Score: 4 BRADFORD-7 AMB Questionnaire BRADFORD-7 Date BRADFORD - 7 assessed: 12/02/24 Feeling nervous, anxious, or on edge: 1 = Several days Not being able to stop or control worryin = Several days Worrying too much about different things: 1 = Several days Trouble relaxin = Several days Being so restless that it is hard to sit still: 1 = Several days Becoming easily annoyed or irritable: 1 = Several days Feeling afraid as if something awful might happen: 1 = Several days Total BRADFORD-7 score (0-4 normal; 5-9 mild; 10-14 moderate; 15-21 severe): 7 Source: Developed by Drs. Ghulam Orozco, Christina Bentley, Jameson Braun and colleagues, with an educational danish from [employer]. BRADFORD-7 Assessment Billing BRADFORD-7 Assessment Tool: BRADFORD-7 Assessment 15257 Review of Systems Const All systems reviewed & are unremarkable except as noted in HPI and below Card Denies chest pain at rest, Denies chest pain with activity, Denies edema, Denies irregular heart rhythm, Denies claudication, Denies dyspnea, Denies dyspnea on exertion, Denies orthopnea, Denies paroxysmal nocturnal dyspnea and Denies slow heart rate Resp Denies cough, Denies dyspnea and Denies dyspnea on exertion GI Denies abdominal pain, Denies change in bowel habits, Denies excessive flatus, Denies nausea and Denies vomiting Physical exam (Primary Care) Vital Signs: Last Vital Signs Pulse 89 12/02/24 12:32 BP 120/50 L 12/02/24 12:32 Pulse Ox 98 12/02/24 12:32 Oxygen Delivery Method Room Air 12/02/24 12:32 BMI result Body Mass Index 23.0 Tobacco/Smoking Status: Tobacco use Status Tobacco use date assessed 12/02/24 12/02/24 12:38 Patient Tobacco Use Status Never used Tobacco 12/02/24 12:38 e-Cigarette/Vaping Use Never Used 12/02/24 12:38 PHQ-9: PHQ-9 Score PHQ-9: Total score 7 12/02/24 12:38 Depression Screening Interpretation: Positive Depression Screening Follow-up: Existing condition and Follow-up Visit Requested Thrive Assessment: Date of Thrive Assessment Date Thrive assessed 12/02/24 12/02/24 12:38 Currently or been in a relationship where the following occur: I choose not to answer [facility] General nose exam: Normal external nose present and No nasal discharge present Face and sinus: Yes sinuses nontender Mouth: lip normal Eyes General: appearance normal, both eyes and all related structures Eyelids: Yes eyelids normal Conjunctivae: conjunctivae normal Neck Neck: Yes normal visual inspection and Yes supple Resp Effort & Inspection: normal respiratory effort Auscultation: clear to auscultation bilaterally Cardio Jugular venous distension: no JVD Rate: regular rate Rhythm: regular rhythm Heart sounds: S1 normal heart sound present and S2 normal heart sound present GI Inspection: Yes normal to inspection Palpation (GI): Soft to palpation and nontender Auscultation: normal bowel sounds Skin General skin exam: no rashes or lesions noted Neuro General: no focal motor deficits Extrem General: Yes full ROM Psych Appearance: grossly normal Coding Level of Care Code Est Pt Level 3 (51781) Est Pt Prev Care 40-64y(83518) Diagnoses Physical exam Z00.00 Mild recurrent major depression F33.0 BRADFORD (generalized anxiety disorder) F41.1 Additional Codes BRADFORD-7 Assessment Billing - BRADFORD-7 Assessment Tool: BRADFORD-7 Assessment 44523 ([id number]) PHQ-9 - 47064 - PHQ-9 Billing: Yes ([id number]) Time Spent (min) 33 Assessment & Plan Assessment & Plan (1) Physical exam: Code(s): Z00.00 - Encounter for general adult medical examination without abnormal findings Category: Medical (2) Mild recurrent major depression: Code(s): F33.0 - Major depressive disorder, recurrent, mild Category: Medical (3) BRADFORD (generalized anxiety disorder): Code(s): F41.1 - Generalized anxiety disorder Category: Medical Plan Plan Patient was informed and verbally consented to the use of an ambient scribe for clinic note documentation during this visit. 1. Encounter for general adult medical examination without abnormal findings Z00.00 The patient is up to date with her preventative care measures, including a Tdap vaccination in 2015, a recent mammogram with normal results, and a colonoscopy in 2022. She also had a Pap smear in 2020, followed by a hysterectomy, which negates the need for further Pap smears. 2. Major depressive disorder, recurrent, mild F33.0 HCC 59 The patient has been experiencing symptoms of depression with a PHQ-9 score of 7, indicating mild depression. She expressed interest in medication management, and a plan was made to start an antidepressant, with the suggestion to begin on a weekend to monitor for any side effects. Orders: Orders Lipid Panel Today Z00.00 - Encounter for general adult medical examination without abnormal findings Comprehensive [place]. Panel Fast Today Z00.00 - Encounter for general adult medical examination without abnormal findings Medications: New bupropion HCl XL (Wellbutrin XL) 150 mg PO QAM 90 tabs 1RF 90 days F33.0 - Major depressive disorder, recurrent, mild
[2024-12-02 12:32] VITALS: BP 120/50; PULSE 89; O2SAT 98; BMI 23.0
== END 2024-12-02 12:59 | disposition home or self-care (01) ==
LOC: HO.HMCH 12:29
PROVIDERS: PCP Internal Medicine; Visit Provider Internal Medicine
DX: Z00.00 Encounter for general adult medical examination without abnormal findings (principal); F33.0 Major depressive disorder, recurrent, mild; F41.1 Generalized anxiety disorder

== ENCOUNTER → 2024-12-02 12:28 | Outpatient (BNVA) | payer BC, SELFPAY | PROVIDERS: PCP Internal Medicine; Visit Provider Internal Medicine | DX: Z00.00 Encounter for general adult medical examination without abnormal findings (principal); F33.0 Major depressive disorder, recurrent, mild; F41.1 Generalized anxiety disorder | CPT/HCPCS: 96127 ==

== ENCOUNTER 2024-12-31 15:36 | Outpatient (REF) | payer BC, SELFPAY | END 2024-12-31 15:37 | disposition home or self-care (01) | LOC: HO.LAB 15:36 | PROVIDERS: PCP Internal Medicine; Visit Provider Internal Medicine | DX: Z13.89 Encounter for screening for other disorder (principal) ==

== ENCOUNTER 2025-01-24 09:11 | Outpatient (REF) | payer BC, SELFPAY ==
[2025-01-24 10:11] LABS: Alanine Aminotransferase 29 U/L (0-31); Albumin Level 4.8 g/dL (3.5-5.0); Alkaline Phosphatase 56 U/L (39-117); Anion Gap 10 (12-20); Aspartate Amino Transferase 24 U/L (5-31); Blood Urea Nitrogen 10 mg/dL (9-16); Calcium 9.9 mg/dL (8.4-10.2); Carbon Dioxide 28 mmol/L (22-29); Chloride 107 mmol/L (96-108); Cholesterol 209 mg/dL (<200); Estimated Glomerular Filt Rate > 60; HDL Cholesterol 51 mg/dL (>40); Potassium 3.8 mmol/L (3.3-5.1); Sodium 141 mmol/L (135-145); Total Protein 7.2 g/dL (6.5-8.0); Triglycerides 89 mg/dL (<150)
== END 2025-01-24 09:12 | disposition home or self-care (01) ==
LOC: HO.LAB 09:11
PROVIDERS: PCP Internal Medicine; Visit Provider Internal Medicine
DX: Z00.00 Encounter for general adult medical examination without abnormal findings (principal); Z13.6 Encounter for screening for cardiovascular disorders
CPT/HCPCS: 36415; 80053; 80061